=== PATIENT | male | born 1945 | race American Indian/Alaskan Native ===

== ENCOUNTER 2019-11-22 13:19 | Inpatient (IN) | payer MEDICARE ==
[2019-11-22] MEDS ORDERED: SODIUM CHLORIDE 0.9% 1000 ML IV SOLN IV ONE (13:54)
[2019-11-22] MEDS ORDERED: methylPREDNISolone Sod Succinate 125 MG/2 ML INJ IV ONE (13:55)
[2019-11-22] MEDS ORDERED: MAGNESIUM SULFATE 1 GM in SODIUM CHLORIDE 0.9% 50 ML IV ONE (13:55)
[2019-11-22] MEDS ORDERED: ALBUTEROL 2.5 MG/3 ML NEBU IH ONE (13:55)
[2019-11-22] MEDS ORDERED: AZITHROMYCIN 500 MG in SODIUM CHLORIDE 0.9% 250ML 250 ML IV SCH (14:00)
[2019-11-22] MEDS: LORazepam 2 MG/ML VIAL IV PRN (14:12)
--- NOTE | 2019-11-22 14:18 | XRay Report ---
CHEST 1 VIEW 11/22/2019 2:01 PM INDICATION / CLINICAL INFORMATION: respiratory distress. COMPARISON: 2 views of the chest from 03/06/2016. FINDINGS: SUPPORT DEVICES: None. HEART / MEDIASTINUM: No significant abnormality. LUNGS / PLEURA: Right basilar airspace opacities are noted. The lungs are otherwise clear. No signifi cant pleural effusion. No pneumothorax. ADDITIONAL FINDINGS: No significant additional findings. IMPRESSION: Findings concerning for right middle/lower lobe pneumonia. Please correlate with the clinical finding s. Signer Name: Benny Gregory MD Signed: 11/22/2019 2:14 PM Workstation Name: [id number]
[2019-11-22] MEDS: cefTRIAXone/NS 2 GM/100 ML 2 GM/100 ML BAG IV SCH (14:37)
[2019-11-22 14:44] LABS: Basophils # (Auto) 0.1 K/mm3 (0.0-0.1); Basophils % (Auto) 0.8 % (0.0-1.8); Eosinophils # (Auto) 0.1 K/mm3 (0.0-0.4); Eosinophils % (Auto) 0.7 % (0.0-4.3); Hematocrit 42.2 % (35.5-45.6); Hemoglobin 13.8 gm/dl (11.8-15.2); Lymphocytes # (Auto) 0.6 K/mm3 (1.2-5.4); Lymphocytes % (Auto) 6.7 % (13.4-35.0); Mean Corpuscular HGB Conc 33 % (32-34); Mean Corpuscular Volume 83 fl (84-94); Monocytes # (Auto) 0.5 K/mm3 (0.0-0.8); Monocytes % (Auto) 5.2 % (0.0-7.3); Platelet Count 351 K/mm3 (140-440); Red Blood Count 5.07 M/mm3 (3.65-5.03); Red Cell Distribution Width 15.5 % (13.2-15.2)
[2019-11-22 15:05] LABS: Bilirubin,Urine NEG (Negative); Blood,Urine NEG (Negative); Color,Urine Straw (Yellow); Protein,Urine <15 mg/dL mg/dL (Negative); RBC,Urine < 1.0 /HPF (0.0-6.0); Urobilinogen,Urine < 2.0 mg/dL (<2.0); WBC,Urine < 1.0 /HPF (0.0-6.0)
[2019-11-22 15:06] LABS: Alanine Aminotransferase 27 units/L (7-56); Albumin 3.9 g/dL (3.9-5); BUN/Creatinine Ratio 13; Blood Urea Nitrogen 9 mg/dL (9-20); Calcium 9.2 mg/dL (8.4-10.2); Hemolysis Index 7
--- NOTE | 2019-11-22 15:31 | Emergency Department Report ---
ED Shortness of Breath HPI - General Chief Complaint: Dyspnea/Respdistress Stated Complaint: HORACIO Time Seen by Provider: 11/22/19 13:50 Source: EMS Mode of arrival: Stretcher Limitations: No Limitations - History of Present Illness Initial Comments: Patient is a 74-year-old F [place] male with a past medical history of COPD who is presenting with increased cough. Patient states over the last 2 to 3 days his cough is worsened. Feels very short of breath. Tried taking a neb treatment at home without relief. Patient is on 2 L at baseline. Patient has had subjective fevers. He denies nausea vomiting diarrhea. Patient is complaining of some pain in the center to right chest. Pain Scale: 4 Quality: other (Tight) Improves With: nothing Worsens With: exertion Known History Of: COPD Associated Symptoms: fever, cough, sputum production - Related Data Home Oxygen Amount: 2 Liters Home Medications Medication Instructions Recorded Confirmed Last Taken Albuterol INH(or & Nicu Only) 2 puff IH QID PRN 08/28/13 03/06/16 01/22/16 08:00 [ProAir HFA Inhaler] Budesoni/Formotero 160-4.5(Nf) 16 mcg INHALATION BID 08/28/13 03/06/16 01/21/16 21:00 [Symbicort 160-4.5 (Nf)] Doxazosin [Cardura] 8 mg PO DAILY 08/28/13 03/06/16 01/22/16 08:00 Fluticasone Propionate [Flonase] 50 mcg PF BID 08/28/13 03/06/16 01/21/16 21:00 Losartan [Cozaar] 100 mg PO DAILY 08/28/13 03/06/16 01/22/16 08:00 Montelukast [Singulair] 10 mg PO DAILY 08/28/13 03/06/16 01/22/16 08:00 NIFEdipine [NIFEdipine ER] 30 mg PO DAILY 08/28/13 03/06/16 01/22/16 08:00 Spironolactone 25 mg PO DAILY 08/28/13 03/06/16 01/22/16 08:00 Colcrys 0.5 mg PO DAILY 01/22/16 03/06/16 01/22/16 08:00 Esomeprazole Magnesium 40 mg PO DAILY 01/22/16 03/06/16 01/22/16 08:00 Symbicort 80-4.5 (Nf) 80 mcg INHALATION BID 01/22/16 03/06/16 Unknown Previous Rx's Medication Instructions Recorded Last Taken Type Albuterol Sulfate [Proair 90 mcg IH Q4HR PRN #2 aer.pow.ba 11/25/15 01/22/16 10:00 Rx Respiclick] Albuterol Sulfate [Albuterol 0.63% 0.63 mg IH Q4H PRN #25 vial.neb 01/22/16 Unknown Rx NEBS] Azithromycin [Zithromax Z-MALORIE] 1 dose PO DAILY 5 Days tab 03/06/16 Unknown Rx Prednisone [predniSONE 10 mg 10 mg PO .TAPER #1 tab.ds.pk 03/06/16 Unknown Rx (6-Day Pack, 21 Tabs)] Allergies Allergy/AdvReac Type Severity Reaction Status Date / Time lisinopril Allergy Angioedema Verified 11/25/15 20:02 monosodium glutamate Allergy Unknown Verified 11/22/19 14:03 tiotropium bromide Allergy Rash Verified 11/25/15 20:02 [From Spiriva with HandiHaler] ED Review of Systems ROS: Stated complaint: HORACIO Other details as noted in HPI Comment: All other systems reviewed and negative ED Past Medical Hx - Past Medical History Previous Medical History?: Yes Hx Hypertension: Yes Hx Heart Attack/AMI: No Hx Congestive Heart Failure: No Hx Diabetes: No Hx Deep Vein Thrombosis: No Hx Pulmonary Embolism: No Hx GERD: Yes Hx Liver Disease: No Hx Renal Disease: No Hx Sickle Cell Disease: No Hx Arthritis: Yes Hx Headaches / Migraines: No Hx Seizures: No Hx Kidney Stones: No Hx Asthma: No Hx COPD: Yes Hx Tuberculosis: No Hx Dementia: No Hx HIV: No - Surgical History Hx Coronary Stent: No Hx Open Heart Surgery: No Hx Pacemaker: No Hx Internal Defibrillator: No Hx Cholecystectomy: No Hx Appendectomy: No Hx Breast Surgery: No - Social History Smoking Status: Former Smoker Substance Use Type: Alcohol - Medications Home Medications: Home Medications Medication Instructions Recorded Confirmed Last Taken Type Albuterol INH(or & Nicu Only) 2 puff IH QID PRN 08/28/13 03/06/16 01/22/16 08:00 History [ProAir HFA Inhaler] Budesoni/Formotero 160-4.5(Nf) 16 mcg INHALATION BID 08/28/13 03/06/16 01/21/16 21:00 History [Symbicort 160-4.5 (Nf)] Doxazosin [Cardura] 8 mg PO DAILY 08/28/13 03/06/16 01/22/16 08:00 History Fluticasone Propionate [Flonase] 50 mcg PF BID 08/28/13 03/06/16 01/21/16 21:00 History Losartan [Cozaar] 100 mg PO DAILY 08/28/13 03/06/16 01/22/16 08:00 History Montelukast [Singulair] 10 mg PO DAILY 08/28/13 03/06/16 01/22/16 08:00 History NIFEdipine [NIFEdipine ER] 30 mg PO DAILY 08/28/13 03/06/16 01/22/16 08:00 Histo ry Spironolactone 25 mg PO DAILY 08/28/13 03/06/16 01/22/16 08:00 History Albuterol Sulfate [Proair 90 mcg IH Q4HR PRN #2 aer.pow.ba 11/25/15 03/06/16 01/22/16 10:00 Rx Respiclick] Albuterol Sulfate [Albuterol 0.63% 0.63 mg IH Q4H PRN #25 vial.neb 01/22/16 03/06/16 Unknown Rx NEBS] Colcrys 0.5 mg PO DAILY 01/22/16 03/06/16 01/22/16 08:00 History Esomeprazole Magnesium 40 mg PO DAILY 01/22/16 03/06/16 01/22/16 08:00 History Symbicort 80-4.5 (Nf) 80 mcg INHALATION BID 01/22/16 03/06/16 Unknown History Azithromycin [Zithromax Z-MALORIE] 1 dose PO DAILY 5 Days tab 03/06/16 Unknown Rx Prednisone [predniSONE 10 mg 10 mg PO .TAPER #1 tab.ds.pk 03/06/16 Unknown Rx (6-Day Pack, 21 Tabs)] ED Physical Exam - General Limitations: No Limitations General appearance: alert, in distress (Patient in respiratory distress with tripod posturing) - Head Head exam: Present: atraumatic, normocephalic - Eye Eye exam: Present: normal appearance, PERRL, EOMI - ENT ENT exam: Present: mucous membranes moist - Neck Neck exam: Present: normal inspection - Respiratory Respiratory exam: Present: respiratory distress, wheezes, accessory muscle use. Absent: normal lung sounds bilaterally - Cardiovascular Cardiovascular Exam: Present: normal rhythm, tachycardia. Absent: systolic murmur, diastolic murmur, rubs, gallop - GI/Abdominal GI/Abdominal exam: Present: soft, normal bowel sounds. Absent: distended, tend erness, guarding, rebound - Rectal Rectal exam: Present: deferred - Extremities Exam Extremities exam: Present: normal inspection - Back Exam Back exam: Present: normal inspection - Neurological Exam Neurological exam: Present: alert, oriented X3 - Psychiatric Psychiatric exam: Present: normal affect, normal mood - Skin Skin exam: Present: warm, dry, intact, normal color. Absent: rash ED Course Vital Signs 11/22/19 11/22/19 11/22/19 13:26 14:20 14:28 Temperature 98.8 F Pulse Rate 141 H 110 H Pulse Rate [ 121 H Bilateral Upper Lobe] Respiratory 32 H 35 H Rate Respiratory 35 H Rate [Bilateral Upper Lobe] Blood Pressure 119/71 [Right] O2 Sat by Pulse 95 96 Oximetry 11/22/19 15:10 Temperature Pulse Rate Pulse Rate [ Bilateral Upper Lobe] Respiratory 18 Rate Respiratory Rate [Bilateral Upper Lobe] Blood Pressure [Right] O2 Sat by Pulse 90 Oximetry - Reevaluation(s) Reevaluation #1: 11/22/19 15:29 On presentation the patient met sepsis criteria and blood cultures were drawn as well as lactic acid. Patient was given Rocephin and azithromycin for presumed pneumonia. ED Medical Decision Making - Lab Data Result diagrams: 11/22/19 13:54 11/22/19 13:54 Lab Results 11/22/19 11/22/19 11/22/19 Range/Units 13:54 13:54 13:54 WBC 8.8 (4.5-11.0) K/mm3 RBC 5.07 H (3.65-5.03) M/mm3 Hgb 13.8 (11.8-15.2) gm/dl Hct 42.2 (35.5-45.6) % MCV 83 L (84-94) fl MCH 27 L (28-32) pg MCHC 33 (32-34) % RDW 15.5 H (13.2-15.2) % Plt Count 351 (140-440) K/mm3 Lymph % (Auto) 6.7 L (13.4-35.0) % [place] % (Auto) 5.2 (0.0-7.3) % Eos % (Auto) 0.7 (0.0-4.3) % Baso % (Auto) 0.8 (0.0-1.8) % Lymph # 0.6 L (1.2-5.4) K/mm3 [place] # 0.5 (0.0-0.8) K/mm3 Eos # 0.1 (0.0-0.4) K/mm3 Baso # 0.1 (0.0-0.1) K/mm3 Seg Neutrophils % 86.6 H (40.0-70.0) % Seg Neutrophils # 7.6 (1.8-7.7) K/mm3 D-Dimer 804.84 H (0-234) ng/mlDDU Sodium 139 (137-145) mmol/L Potassium 3.9 (3.6-5.0) mmol/L Chloride 100.9 (98-107) mmol/L Carbon Dioxide 24 (22-30) mmol/L Anion Gap 18 mmol/L BUN 9 (9-20) mg/dL Creatinine 0.7 L (0.8-1.5) mg/dL Estimated GFR > 60 ml/min BUN/Creatinine Ratio 13 % Glucose 115 H (75-100) mg/dL Lactic Acid (0.7-2.0) mmol/L Calcium 9.2 (8.4-10.2) mg/dL Total Bilirubin 0.50 (0.1-1.2) mg/dL AST 28 (5-40) units/L ALT 27 (7-56) units/L Alkaline Phosphatase 86 (35-129) units/L Troponin T < 0.010 (0.00-0.029) ng/mL Total Protein 7.2 (6.3-8.2) g/dL Albumin 3.9 (3.9-5) g/dL Albumin/Globulin Ratio 1.2 % Urine Color (Yellow) Urine Turbidity (Clear) Urine pH (5.0-7.0) Ur Specific [place] (1.003-1.030) Urine Protein (Negative) mg/dL Urine Glucose (UA) (Negative) mg/dL Urine Ketones (Negative) mg/dL Urine Blood (Negative) Urine Nitrite (Negative) Urine Bilirubin (Negative) Urine Urobilinogen (<2.0) mg/dL Ur Leukocyte Esterase (Negative) Urine WBC (Auto) (0.0-6.0) /HPF Urine RBC (Auto) (0.0-6.0) /HPF U Epithel Cells (Auto) (0-13.0) /HPF 11/22/19 11/22/19 Range/Units 14:27 14:50 WBC (4.5-11.0) K/mm3 RBC (3.65-5.03) M/mm3 Hgb (11.8-15.2) gm/dl Hct (35.5-45.6) % MCV (84-94) fl MCH (28-32) pg MCHC (32-34) % RDW (13.2-15.2) % Plt Count (140-440) K/mm3 Lymph % (Auto) (13.4-35.0) % [place] % (Auto) (0.0-7.3) % Eos % (Auto) (0.0-4.3) % Baso % (Auto) (0.0-1.8) % Lymph # (1.2-5.4) K/mm3 [place] # (0.0-0.8) K/mm3 Eos # (0.0-0.4) K/mm3 Baso # (0.0-0.1) K/mm3 Seg Neutrophils % (40.0-70.0) % Seg Neutrophils # (1.8-7.7) K/mm3 D-Dimer (0-234) ng/mlDDU Sodium (137-145) mmol/L Potassium (3.6-5.0) mmol/L Chloride (98-107) mmol/L Carbon Dioxide (22-30) mmol/L Anion Gap mmol/L BUN (9-20) mg/dL Creatinine (0.8-1.5) mg/dL Estimated GFR ml/min BUN/Creatinine Ratio % Glucose (75-100) mg/dL Lactic Acid 1.30 (0.7-2.0) mmol/L Calcium (8.4-10.2) mg/dL Total Bilirubin (0.1-1.2) mg/dL AST (5-40) units/L ALT (7-56) units/L Alkaline Phosphatase (35-129) units/L Troponin T (0.00-0.029) ng/mL Total Protein (6.3-8.2) g/dL Albumin (3.9-5) g/dL Albumin/Globulin Ratio % Urine Color Straw (Yellow) Urine Turbidity Clear (Clear) Urine pH 6.0 (5.0-7.0) Ur Specific [place] 1.009 (1.003-1.030) Urine Protein <15 mg/dl (Negative) mg/dL Urine Glucose (UA) Neg (Negative) mg/dL Urine Ketones Neg (Negative) mg/dL Urine Blood Neg (Negative) Urine Nitrite Neg (Negative) Urine Bilirubin Neg (Negative) Urine Urobilinogen < 2.0 (<2.0) mg/dL Ur Leukocyte Esterase Neg (Negative) Urine WBC (Auto) < 1.0 (0.0-6.0) /HPF Urine RBC (Auto) < 1.0 (0.0-6.0) /HPF U Epithel Cells (Auto) < 1.0 (0-13.0) /HPF D-dimer was ordered as part of the COVID-19 screening. I was not suspicious of a pulmonary embolus. - Radiology Data [facility] [address] [place] [address] XRay Report Signed Patient: RADHA JOHNSON MR#: [id number] : 1945 Acct:[id number] Age/Sex: 74 / M ADM Date: 11/22/19 Loc: ED Attending Dr: Ordering Physician: MEGA RICHARDSON MD Date of Service: 11/22/19 Procedure(s): XR chest 1V ap Accession Number(s): [id number] cc: MEGA RICHARDSON MD Fluoro Time In Minutes: CHEST 1 VIEW 11/22/2019 2:01 PM INDICATION / CLINICAL INFORMATION: respiratory distress. COMPARISON: 2 views of the chest from 03/06/2016. FINDINGS: SUPPORT DEVICES: None. HEART / MEDIASTINUM: No significant abnormality. LUNGS / PLEURA: Right basilar airspace opacities are noted. The lungs are otherwise clear. No significant pleural effusion. No pneumothorax. ADDITIONAL FINDINGS: No significant additional findings. IMPRESSION: Findings concerning for right middle/lower lobe pneumonia. Please correlate with the clinical findings. Signer Name: Benny Gregory MD Signed: 11/22/2019 2:14 PM Workstation Name: [id number] Transcribed By: MICKI Dictated By: Benny Gregory MD Electronically Authenticated By: Benny Gregory MD Signed Date/Time: 11/22/19 1414 - Medical Decision Making Patient is a 74-year-old F [place] male with a past medical history of significant for COPD. Patient found to have right middle and lower lobe infil trates consistent with pneumonia. Patient was placed on the PGY list and COVID- 19 labs have been ordered. Patient will be admitted to the hospital service patient is received a hour-long neb treatment on BiPAP and feeling some improvement and is no longer having tripod posturing at the time of admission. Critical Care Time: Yes (30) Critical care attestation.: If time is entered above; I have spent that time in minutes in the direct care of this critically ill patient, excluding procedure time. ED Disposition Clinical Impression: COPD exacerbation, Suspected COVID-19 virus infection Pneumonia Qualifiers: Pneumonia type: due to unspecified organism Laterality: right Lung location: lower lobe of lung Qualified Code(s): J18.9 - Pneumonia, unspecified organism Disposition: OP ADMIT IP TO THIS HOSP Is pt being admited?: Yes Does the pt Need Aspirin: No Condition: Stable Referrals: PRIMARY CARE, [Primary Care Provider] - 3-5 Days Time of Disposition: 15:32
--- NOTE | 2019-11-22 15:34 | History and Physical Report ---
History of Present Illness Chief complaint: I can hardly breathe History of present illness: 74 YO Male with COPD, OA, GERD, Chronic Respiratory Failure on 2L Home Oxygen via [place], HTN, presents to ED for evaluation. He has experienced shortness of breath over the past 2 weeks with worsening symptoms over the past 2 to 3 days. Patient acknowledges shortness of breath, dry cough, generalized weakness, subjective fever, malaise. Patient acknowledges increased bronchodilator and nebulizer therapy use without relief. EMS was notified and upon arrival the patient was found to be in distress and subsequently transported to [facility] for further evaluation and care. Patient seen and evaluated in the emergency department. Lab and imaging studies reviewed. Patient found to be in respiratory distress. Patient tripoding. Patient leaning forward and using accessory muscles to breathe. Patient is unable to speak in complete sentences. Patient underwent chest x-ray which revealed a right middle lobe and right lower lobe pneumonia. Patient found to have a pulse oximetry of 88% on room air but is consistent with acute hypoxemic respiratory failure. Due to the patient's constellation of symptoms the patient is suspected to have coronavirus infection. Patient initiated on COVID-19 protocol. Patient admitted to medical floor due to increased risk of pulmonary decompensation. Infectious disease service consulted in ED. Pulmonology service consulted in ED. Patient denies shaking chills or chills, chest pain, nausea, vomiting, diarrhea, hemoptysis, unilateral leg swelling, calf pain, prolonged travel/immobility, unintentional weight loss, night sweats, recent ill contacts, or known exposure to COVID-19. Advanced care planning conducted in ED. Past History Past Medical History: arthritis, COPD, GERD, hypertension, other (See HPI) Past Surgical History: No surgical history, Other (Reviewed) Social history: . denies: prescription drug abuse Family history: hypertension Medications and Allergies Allergies Allergy/AdvReac Type Severity Reaction Status Date / Time lisinopril Allergy Angioedema Verified 11/25/15 20:02 monosodium glutamate Allergy Unknown Verified 11/22/19 14:03 tiotropium bromide Allergy Rash Verified 11/25/15 20:02 [From Spiriva with HandiHaler] Home Medications Medication Instructions Recorded Confirmed Last Taken Type Albuterol INH(or & Nicu Only) 2 puff IH QID PRN 08/28/13 03/06/16 01/22/16 08:00 History [ProAir HFA Inhaler] Budesoni/Formotero 160-4.5(Nf) 16 mcg INHALATION BID 08/28/13 03/06/16 01/21/16 21:00 History [Symbicort 160-4.5 (Nf)] Doxazosin [Cardura] 8 mg PO DAILY 08/28/13 03/06/16 01/22/16 08:00 History Fluticasone Propionate [Flonase] 50 mcg PF BID 08/28/13 03/06/16 01/21/16 21:00 History Losartan [Cozaar] 100 mg PO DAILY 08/28/13 03/06/16 01/22/16 08:00 History Montelukast [Singulair] 10 mg PO DAILY 08/28/13 03/06/16 01/22/16 08:00 History NIFEdipine [NIFEdipine ER] 30 mg PO DAILY 08/28/13 03/06/16 01/22/16 08:00 History Spironolactone 25 mg PO DAILY 08/28/13 03/06/16 01/22/16 08:00 History Albuterol Sulfate [Proair 90 mcg IH Q4HR PRN #2 aer.pow.ba 11/25/15 03/06/16 01/22/16 10:00 Rx Respiclick] Albuterol Sulfate [Albuterol 0.63% 0.63 mg IH Q4H PRN #25 vial.neb 01/22/16 03/06/16 Unknown Rx NEBS] Colcrys 0.5 mg PO DAILY 01/22/16 03/06/16 01/22/16 08:00 History Esomeprazole Magnesium 40 mg PO DAILY 01/22/16 03/06/16 01/22/16 08:00 History Symbicort 80-4.5 (Nf) 80 mcg INHALATION BID 01/22/16 03/06/16 Unknown History Azithromycin [Zithromax Z-MALORIE] 1 dose PO DAILY 5 Days tab 03/06/16 Unknown Rx Prednisone [predniSONE 10 mg 10 mg PO .TAPER #1 tab.ds.pk 03/06/16 Unknown Rx (6-Day Pack, 21 Tabs)] Active Meds: Active Medications Ceftriaxone Sodium (Rocephin/Ns 2 Gm/100 Ml) 2 gm in 100 mls @ 200 mls/hr IV Q24H LANDY; Protocol Last Infusion: 11/22/19 15:07 Dose: Infused Documented by: Azithromycin 500 mg/ Sodium (Chloride) 250 mls @ 250 mls/hr IV Q24HR [facility]; Protocol Last Admin: 11/22/19 15:15 Dose: 250 mls/hr Documented by: Lorazepam (Ativan) 1 mg IV Q4H PRN PRN Reason: Anxiety Last Admin: 11/22/19 14:12 Dose: 1 mg Documented by: Review of Systems Constitutional: weight loss, weight gain, chills, fatigue, malaise, lethargy Ears, nose, mouth and throat: no ear pain, no ear discharge, no tinnitis, no decreased hearing Cardiovascular: no chest pain, no orthopnea, no palpitations Respiratory: cough, shortness of breath Gastrointestinal: no nausea, no vomiting, no diarrhea, no constipation Genitourinary Male: no hematuria, no flank pain, no discharge, no urinary frequency, no urinary hesitancy Rectal: no pain, no incontinence, no bleeding Musculoskeletal: no neck stiffness, no neck pain, no shooting arm pain, no arm numbness/tingling, no low back pain Integumentary: no rash, no redness, no sores Neurological: no head injury, no weakness, no parathesias, no tingling, no syncope Psychiatric: no anxiety, no memory loss, no change in sleep habits, no insomnia, no hypersomnia, no change in libido, no suicidal ideation Endocrine: no cold intolerance, no heat intolerance, no polydipsia, no polyuria, no nocturia, no excessive sweating Hematologic/Lymphatic: no easy bruising, no easy bleeding, no lymphadenopathy Allergic/Immunologic: no urticaria, no allergic rhinitis, no wheezing, no persistent infections, no anaphylaxis, no angioedema Exam - Constitutional Vitals: Temp Pulse Resp BP Pulse Ox 98.8 F 121 H 18 119/71 90 11/22/19 13:26 11/22/19 14:28 11/22/19 15:10 11/22/19 13:26 11/22/19 15:10 General appearance: Present: mild distress, cachectic - EENT Eyes: Present: PERRL ENT: hearing intact, clear oral mucosa - Neck Neck: Present: supple, normal ROM - Respiratory Respiratory effort: normal, labored, pursed lips, accessory muscle use, stridor Respiratory: bilateral: diminished - Cardiovascular Heart Sounds: Present: S1 & S2. Absent: rub, click - Extremities Extremities: pulses symmetrical, No edema Peripheral Pulses: within normal limits - Abdominal General gastrointestinal: Present: soft, non-tender, non-distended, normal bowel sounds Male genitourinary: Present: normal - Integumentary Integumentary: Present: clear, warm, dry - Musculoskeletal Musculoskeletal: gait normal, strength equal bilaterally - Psychiatric Psychiatric: appropriate mood/affect, intact judgment & insight - Neurologic Neurologic: CNII-XII intact, moves all extremities HEART Score - HEART Score Troponin: Troponin T < 0.010 ng/mL (0.00-0.029) 11/22/19 13:54 Results - Labs CBC & Chem 7: 11/22/19 13:54 11/22/19 14:27 Labs: Abnormal lab results 11/22/19 11/22/19 11/22/19 Range/Units 13:54 13:54 13:54 RBC 5.07 H (3.65-5.03) M/mm3 MCV 83 L (84-94) fl MCH 27 L (28-32) pg RDW 15.5 H (13.2-15.2) % Lymph % (Auto) 6.7 L (13.4-35.0) % Lymph # 0.6 L (1.2-5.4) K/mm3 Seg Neutrophils % 86.6 H (40.0-70.0) % D-Dimer 804.84 H (0-234) ng/mlDDU Creatinine 0.7 L (0.8-1.5) mg/dL Glucose 115 H (75-100) mg/dL Assessment and Plan - Patient Problems (1) Acute hypoxemic respiratory failure Current Visit: Yes Status: Acute Plan to address problem: Chest x-ray, supplemental oxygen, nebulizer therapy, supportive care, pulmonary team consulted in ED. (2) Pneumonia Current Visit: Yes Status: Acute Qualifiers: Pneumonia type: due to unspecified organism Laterality: right Lung location: lower lobe of lung Qualified Code(s): J18.9 - Pneumonia, unspecified organism Plan to address problem: Pneumonia protocol: CBC, CMP, chest x-ray, IV antibiotic therapy, supplemental oxygen, pulse oximetry (3) Suspected COVID-19 virus infection Current Visit: Yes Status: Acute Plan to address problem: COVID-19 protocol: Procalcitonin level d-dimer, ferritin level, LDH level, coronavirus PCR, prone positioning while in bed, infectious disease service consulted. (4) Hypertension Current Visit: No Status: Chronic Qualifiers: Hypertension type: essential hypertension Qualified Code(s): I10 - Essential (primary) hypertension Plan to address problem: Monitor blood pressure every shift, continue medical management. (5) Gastroesophageal reflux disease Current Visit: Yes Status: Acute Qualifiers: Esophagitis presence: without esophagitis Qualified Code(s): K21.9 - Gastr o-esophageal reflux disease without esophagitis Plan to address problem: PPI therapy, supportive care (6) DVT prophylaxis Current Visit: Yes Status: Acute Plan to address problem: SCD to bilateral lower extremities while in bed, patient is ambulatory
[2019-11-22 15:35] LABS: C-Reactive Protein 1.5 mg/dL (0.00-1.30)
[2019-11-22] MEDS ORDERED: ONDANSETRON 4 MG/2 ML INJ IV PRN (15:35)
[2019-11-22] MEDS ORDERED: ACETAMINOPHEN 325 MG TAB PO PRN (15:35)
[2019-11-22] MEDS: BUDESONIDE 0.5 MG/2 ML NEBU IH SCH (20:48)
[2019-11-22] MEDS: ARFORMOTEROL 15 MCG/2 ML NEBU IH SCH (20:49)
[2019-11-22] MEDS ORDERED: SYMBICORT 80 MCG INHALATION SCH (22:00)
[2019-11-23] MEDS: ALBUTEROL 8.5 GM INHALATION IH PRN ×3 (05:52→21:33)
[2019-11-23] MEDS: LORazepam 2 MG/ML VIAL IV PRN (06:33)
[2019-11-23] MEDS: SPIRONOLACTONE 25 MG TAB PO SCH (09:18)
[2019-11-23] MEDS: DOXAZOSIN 4 MG TAB PO SCH (09:18)
[2019-11-23] MEDS: ARFORMOTEROL 15 MCG/2 ML NEBU IH SCH ×2 (09:18→21:31)
[2019-11-23] MEDS: BUDESONIDE 0.5 MG/2 ML NEBU IH SCH ×2 (09:18→21:37)
[2019-11-23] MEDS: COLCHICINE 0.6 MG CAP PO SCH (09:19)
[2019-11-23] MEDS: NIFEdipine XL 30 MG TAB PO SCH (09:19)
[2019-11-23] MEDS: LOSARTAN 50 MG TAB PO SCH (09:19)
[2019-11-23] MEDS: AZITHROMYCIN 250 MG TAB PO SCH (09:20)
[2019-11-23] MEDS: MONTELUKAST 10 MG TAB PO SCH (09:20)
[2019-11-23] MEDS: PANTOPRAZOLE 40 MG TAB PO SCH (09:21)
[2019-11-23] MEDS ORDERED: COLCHICINE PO SCH (10:00)
[2019-11-23] MEDS: cefTRIAXone/NS 2 GM/100 ML 2 GM/100 ML BAG IV SCH (13:26)
--- NOTE | 2019-11-23 19:21 | Progress Note ---
Assessment and Plan - Patient Problems (1) Acute hypoxemic respiratory failure Current Visit: Yes Status: Acute Plan to address problem: Chest x-ray, supplemental oxygen, nebulizer therapy, supportive care, pulmonary team consulted in ED. (2) Pneumonia Current Visit: Yes Status: Acute Qualifiers: Pneumonia type: due to unspecified organism Laterality: right Lung location: lower lobe of lung Qualified Code(s): J18.9 - Pneumonia, unspecified organism Plan to address problem: Pneumonia protocol: CBC, CMP, chest x-ray, IV antibiotic therapy, supplemental oxygen, pulse oximetry (3) Suspected COVID-19 virus infection Current Visit: Yes Status: Acute Plan to address problem: COVID-19 PCR is negative (4) Hypertension Current Visit: No Status: Chronic Qualifiers: Hypertension type: essential hypertension Qualified Code(s): I10 - Essential (primary) hypertension Plan to address problem: Monitor blood pressure every shift, continue medical management. (5) Gastroesophageal reflux disease Current Visit: Yes Status: Acute Qualifiers: Esophagitis presence: without esophagitis Qualified Code(s): K21.9 - Gastro-esophageal reflux disease without esophagitis Plan to address problem: PPI therapy, supportive care (6) DVT prophylaxis Current Visit: Yes Status: Acute Plan to address problem: SCD to bilateral lower extremities while in bed, patient is ambulatory History Interval history: 74 YO Male HD#2 with Pneumonia, Acute Hypoxemic Respiratory Failure, HTN, GERD. Coronavirus PCR is nagative. Patient states that it is still "hard to breathe. Patient states that he has dyspnea on exertion, dyspnea at rest. Patient states that "this is been going on for a while". No reported nursing events. Patient denies fever, chills, chest pain. Hospitalist Physical - Constitutional Vitals: Temp Pulse Resp BP Pulse Ox 98.6 F 95 H 19 101/52 99 11/23/19 16:44 11/23/19 16:44 11/23/19 16:44 11/23/19 16:44 11/23/19 16:44 General appearance: Present: mild distress, cachectic - EENT Eyes: Present: PERRL, EOM intact ENT: hearing intact - Neck Neck: Present: supple - Respiratory Respiratory effort: labored Respiratory: bilateral: diminished - Cardiovascular Rhythm: regular Heart Sounds: Present: S1 & S2 - Extremities Extremities: no ischemia Peripheral Pulses: within normal limits - Abdominal General gastrointestinal: soft, non-tender, non-distended - Integumentary Integumentary: Present: clear, warm, dry - Psychiatric Psychiatric: appropriate mood/affect, cooperative - Neurologic Neurologic: CNII-XII intact HEART Score - HEART Score Troponin: Troponin T < 0.010 ng/mL (0.00-0.029) 11/22/19 13:54 Results - Labs CBC & Chem 7: 11/22/19 13:54 11/22/19 14:27 Labs: Laboratory Last Values WBC 8.8 K/mm3 (4.5-11.0) 11/22/19 13:54 RBC 5.07 M/mm3 (3.65-5.03) H 11/22/19 13:54 Hgb 13.8 gm/dl (11.8-15.2) 11/22/19 13:54 Hct 42.2 % (35.5-45.6) 11/22/19 13:54 MCV 83 fl (84-94) L 11/22/19 13:54 MCH 27 pg (28-32) L 11/22/19 13:54 MCHC 33 % (32-34) 11/22/19 13:54 RDW 15.5 % (13.2-15.2) H 11/22/19 13:54 Plt Count 351 K/mm3 (140-440) 11/22/19 13:54 Lymph % (Auto) 6.7 % (13.4-35.0) L 11/22/19 13:54 [place] % (Auto) 5.2 % (0.0-7.3) 11/22/19 13:54 Eos % (Auto) 0.7 % (0.0-4.3) 11/22/19 13:54 Baso % (Auto) 0.8 % (0.0-1.8) 11/22/19 13:54 Lymph # 0.6 K/mm3 (1.2-5.4) L 11/22/19 13:54 [place] # 0.5 K/mm3 (0.0-0.8) 11/22/19 13:54 Eos # 0.1 K/mm3 (0.0-0.4) 11/22/19 13:54 Baso # 0.1 K/mm3 (0.0-0.1) 11/22/19 13:54 Seg Neutrophils % 86.6 % (40.0-70.0) H 11/22/19 13:54 Seg Neutrophils # 7.6 K/mm3 (1.8-7.7) 11/22/19 13:54 D-Dimer 804.84 ng/mlDDU (0-234) H 11/22/19 13:54 Sodium 139 mmol/L (137-145) 11/22/19 13:54 Potassium 3.9 mmol/L (3.6-5.0) 11/22/19 13:54 Chloride 100.9 mmol/L (98-107) 11/22/19 13:54 Carbon Dioxide 24 mmol/L (22-30) 11/22/19 13:54 Anion Gap 18 mmol/L 11/22/19 13:54 BUN 9 mg/dL (9-20) 11/22/19 13:54 Creatinine 0.7 mg/dL (0.8-1.5) L 11/22/19 13:54 Estimated GFR > 60 ml/min 11/22/19 13:54 BUN/Creatinine Ratio 13 % 11/22/19 13:54 Glucose 111 mg/dL (75-100) H 11/22/19 14:27 Lactic Acid 1.10 mmol/L (0.7-2.0) 11/22/19 16:59 Calcium 9.2 mg/dL (8.4-10.2) 11/22/19 13:54 Ferritin 124.1 ng/mL (13.0-400.0) 11/22/19 14:27 Total Bilirubin 0.50 mg/dL (0.1-1.2) 11/22/19 13:54 AST 28 units/L (5-40) 11/22/19 13:54 ALT 27 units/L (7-56) 11/22/19 13:54 Alkaline Phosphatase 86 units/L (35-129) 11/22/19 13:54 Lactate Dehydrogenase 353 units/L (91-180) H 11/22/19 14:27 Troponin T < 0.010 ng/mL (0.00-0.029) 11/22/19 13:54 C-Reactive Protein 1.50 mg/dL (0.00-1.30) H 11/22/19 14:27 Total Protein 7.2 g/dL (6.3-8.2) 11/22/19 13:54 Albumin 3.9 g/dL (3.9-5) 11/22/19 13:54 Albumin/Globulin Ratio 1.2 % 11/22/19 13:54 Urine Color Straw (Yellow) 11/22/19 14:50 Urine Turbidity Clear (Clear) 11/22/19 14:50 Urine pH 6.0 (5.0-7.0) 11/22/19 14:50 Ur Specific [place] 1.009 (1.003-1.030) 11/22/19 14:50 Urine Protein <15 mg/dl mg/dL (Negative) 11/22/19 14:50 Urine Glucose (UA) Neg mg/dL (Negative) 11/22/19 14:50 Urine Ketones Neg mg/dL (Negative) 11/22/19 14:50 Urine Blood Neg (Negative) 11/22/19 14:50 Urine Nitrite Neg (Negative) 11/22/19 14:50 Urine Bilirubin Neg (Negative) 11/22/19 14:50 Urine Urobilinogen < 2.0 mg/dL (<2.0) 11/22/19 14:50 Ur Leukocyte Esterase Neg (Negative) 11/22/19 14:50 Urine WBC (Auto) < 1.0 /HPF (0.0-6.0) 11/22/19 14:50 Urine RBC (Auto) < 1.0 /HPF (0.0-6.0) 11/22/19 14:50 U Epithel Cells (Auto) < 1.0 /HPF (0-13.0) 11/22/19 14:50 Coronavirus (PCR) Negative (Negative) 11/22/19 14:50 Microbiology: Microbiology 11/22/19 14:27 Peripheral/Venous Blood Culture - Preliminary NO GROWTH AFTER 24 HOURS 11/22/19 14:27 Peripheral/Venous Blood Culture - Preliminary NO GROWTH AFTER 24 HOURS Titus/IV: Voiding Method Toilet IV Catheter Type [Left Wrist] INT / Saline Lock IV Catheter Type [Right INT / Saline Lock Forearm] Active Medications - Current Medications Current Medications: Generic Name Dose Route Start Last Admin Trade Name Freq PRN Reason Stop Dose Admin Acetaminophen 650 mg 11/22/19 15:35 Tylenol PO Q4H PRN Pain MILD(1-3)/Fever >100.5/[place] Albuterol 2 puff 11/22/19 19:58 11/23/19 18:01 Proair IH 2 puff Q6HRT PRN Administration Shortness Of Breath Arformoterol Tartrate 15 mcg 11/22/19 20:00 11/23/19 09:18 Brovana Nebu IH 15 mcg Q12HRT LANDY Administration Azithromycin 500 mg 11/23/19 10:00 11/23/19 09:20 Zithromax PO 500 mg QDAY LANDY Administration Budesonide 0.5 mg 11/22/19 20:00 11/23/19 09:18 Pulmicort IH 0.5 mg Q12HRT LANDY Administration Colchicine 0.6 mg 11/23/19 10:00 11/23/19 09:19 Colchicine PO 0.6 mg QDAY LANDY Administration Doxazosin Mesylate 8 mg 11/23/19 10:00 11/23/19 09:18 Cardura PO 8 mg DAILY LANDY Administration Ceftriaxone Sodium 2 gm in 100 mls @ 200 mls/hr 11/22/19 14:00 11/23/19 13:26 Rocephin/Ns 2 Gm/100 Ml IV 100 mls/hr Q24H LANDY Administration Protocol Lorazepam 1 mg 11/22/19 13:54 11/23/19 06:33 Ativan IV 1 mg Q4H PRN Administration Anxiety Losartan Potassium 100 mg 11/23/19 10:00 11/23/19 09:19 Cozaar PO 100 mg DAILY LANDY Administration Montelukast Sodium 10 mg 11/23/19 10:00 11/23/19 09:20 Singulair PO 10 mg DAILY LANDY Administration Nifedipine 30 mg 11/23/19 10:00 11/23/19 09:19 Procardia Xl PO 30 mg DAILY LANDY Administration Ondansetron HCl 4 mg 11/22/19 15:35 Zofran IV Q8H PRN Nausea And Vomiting Pantoprazole Sodium 40 mg 11/23/19 10:00 11/23/19 09:21 Protonix PO 40 mg DAILY LANDY Administration Sodium Chloride 10 ml 11/22/19 22:00 11/23/19 09:20 Sodium Chloride Flush Syringe 10 Ml IV 10 ml BID LANDY Administration Sodium Chloride 10 ml 11/22/19 15:35 Sodium Chloride Flush Syringe 10 Ml IV PRN PRN LINE FLUSH Spironolactone 25 mg 11/23/19 10:00 11/23/19 09:18 Aldactone PO 25 mg DAILY LANDY Administration
[2019-11-24] MEDS ORDERED: IPRATROPIUM/ALBUTEROL SULFATE 3 ML AMPUL.NEB IH SCH (08:00)
[2019-11-24] MEDS: BUDESONIDE 0.5 MG/2 ML NEBU IH SCH ×2 (08:28→20:14)
[2019-11-24] MEDS: ARFORMOTEROL 15 MCG/2 ML NEBU IH SCH ×3 (08:28→20:16)
[2019-11-24] MEDS ORDERED: ALBUTEROL 2.5 MG/3 ML NEBU IH PRN (08:41)
[2019-11-24] MEDS: MONTELUKAST 10 MG TAB PO SCH (09:54)
[2019-11-24] MEDS: NIFEdipine XL 30 MG TAB PO SCH (09:54)
[2019-11-24] MEDS: DOXAZOSIN 4 MG TAB PO SCH (09:54)
[2019-11-24] MEDS: SPIRONOLACTONE 25 MG TAB PO SCH (09:54)
[2019-11-24] MEDS: PANTOPRAZOLE 40 MG TAB PO SCH (09:54)
[2019-11-24] MEDS: AZITHROMYCIN 250 MG TAB PO SCH (09:55)
[2019-11-24] MEDS: COLCHICINE 0.6 MG CAP PO SCH (09:55)
[2019-11-24] MEDS: LOSARTAN 50 MG TAB PO SCH (10:05)
[2019-11-24] MEDS ORDERED: methylPREDNISolone Sod Succinate 40 MG/1 ML INJ IV ONE (13:00)
[2019-11-24] MEDS: cefTRIAXone/NS 2 GM/100 ML 2 GM/100 ML BAG IV SCH (13:01)
[2019-11-24] MEDS: IPRATROPIUM/ALBUTEROL SULFATE 3 ML AMPUL.NEB IH SCH ×2 (13:47→20:14)
--- NOTE | 2019-11-24 14:04 | Progress Note ---
Assessment and Plan - Patient Problems (1) Acute hypoxemic respiratory failure Current Visit: Yes Status: Acute Plan to address problem: Chest x-ray, supplemental oxygen, nebulizer therapy, supportive care, pulmonary team consulted in ED. (2) Pneumonia Current Visit: Yes Status: Acute Qualifiers: Pneumonia type: due to unspecified organism Laterality: right Lung location: lower lobe of lung Qualified Code(s): J18.9 - Pneumonia, unspecified organism Plan to address problem: Pneumonia protocol: CBC, CMP, chest x-ray, IV antibiotic therapy, supplemental oxygen, pulse oximetry (3) Suspected COVID-19 virus infection Current Visit: Yes Status: Acute Plan to address problem: Patient coronavirus PCR is negative. Will discontinue isolation precautions. (4) Hypertension Current Visit: No Status: Chronic Qualifiers: Hypertension type: essential hypertension Qualified Code(s): I10 - Essential (primary) hypertension Plan to address problem: Monitor blood pressure every shift, continue medical management. (5) Gastroesophageal reflux disease Current Visit: Yes Status: Acute Qualifiers: Esophagitis presence: without esophagitis Qualified Code(s): K21.9 - Gastro-esophageal reflux disease without esophagitis Plan to address problem: PPI therapy, supportive care (6) DVT prophylaxis Current Visit: Yes Status: Acute Plan to address problem: SCD to bilateral lower extremities while in bed, patient is ambulatory History Interval history: 74 YO Male HD#3 with Pneumonia, Acute Hypoxemic Respiratory Failure, HTN, GERD. Coronavirus PCR is nagative. Patient again states that it is still "hard to br eathe". Patient states that he has dyspnea on exertion, dyspnea at rest. Patient states that "this is been going on for a while". No reported nursing events. Patient denies fever, chills, chest pain, hemoptysis, unilateral leg swelling, calf pain, recent ill contacts. Hospitalist Physical - Constitutional Vitals: Temp Pulse Resp BP Pulse Ox 98.2 F 106 H 18 113/59 98 11/24/19 12:33 11/24/19 13:47 11/24/19 13:47 11/24/19 12:33 11/24/19 13:50 General appearance: Present: mild distress, cachectic - EENT Eyes: Present: PERRL, EOM intact - Neck Neck: Present: supple - Respiratory Respiratory effort: labored Respiratory: bilateral: diminished - Cardiovascular Rhythm: regular Heart Sounds: Present: S1 & S2 - Extremities Extremities: no ischemia Peripheral Pulses: within normal limits - Abdominal General gastrointestinal: soft, non-tender, non-distended - Integumentary Integumentary: Present: clear, warm, dry - Psychiatric Psychiatric: appropriate mood/affect, cooperative - Neurologic Neurologic: CNII-XII intact HEART Score - HEART Score Troponin: Troponin T < 0.010 ng/mL (0.00-0.029) 11/22/19 13:54 Results - Labs CBC & Chem 7: 11/22/19 13:54 11/22/19 14:27 Labs: Laboratory Last Values WBC 8.8 K/mm3 (4.5-11.0) 11/22/19 13:54 RBC 5.07 M/mm3 (3.65-5.03) H 11/22/19 13:54 Hgb 13.8 gm/dl (11.8-15.2) 11/22/19 13:54 Hct 42.2 % (35.5-45.6) 11/22/19 13:54 MCV 83 fl (84-94) L 11/22/19 13:54 MCH 27 pg (28-32) L 11/22/19 13:54 MCHC 33 % (32-34) 11/22/19 13:54 RDW 15.5 % (13.2-15.2) H 11/22/19 13:54 Plt Count 351 K/mm3 (140-440) 11/22/19 13:54 Lymph % (Auto) 6.7 % (13.4-35.0) L 11/22/19 13:54 [place] % (Auto) 5.2 % (0.0-7.3) 11/22/19 13:54 Eos % (Auto) 0.7 % (0.0-4.3) 11/22/19 13:54 Baso % (Auto) 0.8 % (0.0-1.8) 11/22/19 13:54 Lymph # 0.6 K/mm3 (1.2-5.4) L 11/22/19 13:54 [place] # 0.5 K/mm3 (0.0-0.8) 11/22/19 13:54 Eos # 0.1 K/mm3 (0.0-0.4) 11/22/19 13:54 Baso # 0.1 K/mm3 (0.0-0.1) 11/22/19 13:54 Seg Neutrophils % 86.6 % (40.0-70.0) H 11/22/19 13:54 Seg Neutrophils # 7.6 K/mm3 (1.8-7.7) 11/22/19 13:54 D-Dimer 804.84 ng/mlDDU (0-234) H 11/22/19 13:54 Sodium 139 mmol/L (137-145) 11/22/19 13:54 Potassium 3.9 mmol/L (3.6-5.0) 11/22/19 13:54 Chloride 100.9 mmol/L (98-107) 11/22/19 13:54 Carbon Dioxide 24 mmol/L (22-30) 11/22/19 13:54 Anion Gap 18 mmol/L 11/22/19 13:54 BUN 9 mg/dL (9-20) 11/22/19 13:54 Creatinine 0.7 mg/dL (0.8-1.5) L 11/22/19 13:54 Estimated GFR > 60 ml/min 11/22/19 13:54 BUN/Creatinine Ratio 13 % 11/22/19 13:54 Glucose 111 mg/dL (75-100) H 11/22/19 14:27 Lactic Acid 1.10 mmol/L (0.7-2.0) 11/22/19 16:59 Calcium 9.2 mg/dL (8.4-10.2) 11/22/19 13:54 Ferritin 124.1 ng/mL (13.0-400.0) 11/22/19 14:27 Total Bilirubin 0.50 mg/dL (0.1-1.2) 11/22/19 13:54 AST 28 units/L (5-40) 11/22/19 13:54 ALT 27 units/L (7-56) 11/22/19 13:54 Alkaline Phosphatase 86 units/L (35-129) 11/22/19 13:54 Lactate Dehydrogenase 353 units/L (91-180) H 11/22/19 14:27 Troponin T < 0.010 ng/mL (0.00-0.029) 11/22/19 13:54 C-Reactive Protein 1.50 mg/dL (0.00-1.30) H 11/22/19 14:27 Total Protein 7.2 g/dL (6.3-8.2) 11/22/19 13:54 Albumin 3.9 g/dL (3.9-5) 11/22/19 13:54 Albumin/Globulin Ratio 1.2 % 11/22/19 13:54 Urine Color Straw (Yellow) 11/22/19 14:50 Urine Turbidity Clear (Clear) 11/22/19 14:50 Urine pH 6.0 (5.0-7.0) 11/22/19 14:50 Ur Specific [place] 1.009 (1.003-1.030) 11/22/19 14:50 Urine Protein <15 mg/dl mg/dL (Negative) 11/22/19 14:50 Urine Glucose (UA) Neg mg/dL (Negative) 11/22/19 14:50 Urine Ketones Neg mg/dL (Negative) 11/22/19 14:50 Urine Blood Neg (Negative) 11/22/19 14:50 Urine Nitrite Neg (Negative) 11/22/19 14:50 Urine Bilirubin Neg (Negative) 11/22/19 14:50 Urine Urobilinogen < 2.0 mg/dL (<2.0) 11/22/19 14:50 Ur Leukocyte Esterase Neg (Negative) 11/22/19 14:50 Urine WBC (Auto) < 1.0 /HPF (0.0-6.0) 11/22/19 14:50 Urine RBC (Auto) < 1.0 /HPF (0.0-6.0) 11/22/19 14:50 U Epithel Cells (Auto) < 1.0 /HPF (0-13.0) 11/22/19 14:50 Coronavirus (PCR) Negative (Negative) 11/22/19 14:50 Microbiology: Microbiology 11/22/19 14:27 Peripheral/Venous Blood Culture - Preliminary NO GROWTH AFTER 24 HOURS 11/22/19 14:27 Peripheral/Venous Blood Culture - Preliminary NO GROWTH AFTER 24 HOURS Titus/IV: Voiding Method Urinal IV Catheter Type [Left Wrist] INT / Saline Lock IV Catheter Type [Right INT / Saline Lock Forearm] Active Medications - Current Medications Current Medications: Generic Name Dose Route Start Last Admin Trade Name Freq PRN Reason Stop Dose Admin Acetaminophen 650 mg 11/22/19 15:35 Tylenol PO Q4H PRN Pain MILD(1-3)/Fever >100.5/[place] Albuterol 2.5 mg 11/24/19 08:41 Proventil IH Q4HRT PRN Shortness Of Breath Albuterol/Ipratropium 1 ampul 11/24/19 14:00 11/24/19 13:47 Duoneb *Not For Prn Use* IH 1 ampul TIDRT LANDY Administration Arformoterol Tartrate 15 mcg 11/25/19 20:00 Brovana Nebu IH Q12HRT LANDY Azithromycin 500 mg 11/23/19 10:00 11/24/19 09:55 Zithromax PO 11/26/19 10:01 500 mg QDAY LANDY Administration Budesonide 0.5 mg 11/24/19 20:00 Pulmicort IH Q12HRT LANDY Colchicine 0.6 mg 11/23/19 10:00 11/24/19 09:55 Colchicine PO 0.6 mg QDAY LANDY Administration Doxazosin Mesylate 8 mg 11/23/19 10:00 11/24/19 09:54 Cardura PO 8 mg DAILY LANDY Administration Ceftriaxone Sodium 2 gm in 100 mls @ 200 mls/hr 11/22/19 14:00 11/24/19 13:01 Rocephin/Ns 2 Gm/100 Ml IV 11/26/19 14:29 100 mls/hr Q24H LANDY Administration Protocol Lorazepam 1 mg 11/22/19 13:54 11/23/19 06:33 Ativan IV 1 mg Q4H PRN Administration Anxiety Losartan Potassium 100 mg 11/23/19 10:00 11/24/19 10:05 Cozaar PO 100 mg DAILY LANDY Administration Methylprednisolone Sodium Succinate 40 mg 11/24/19 22:00 Solu-Medrol IV Q12HR LANDY Montelukast Sodium 10 mg 11/23/19 10:00 11/24/19 09:54 Singulair PO 10 mg DAILY LANDY Administration Nifedipine 30 mg 11/23/19 10:00 11/24/19 09:54 Procardia Xl PO 30 mg DAILY LANDY Administration Ondansetron HCl 4 mg 11/22/19 15:35 Zofran IV Q8H PRN Nausea And Vomiting Pantoprazole Sodium 40 mg 11/23/19 10:00 11/24/19 09:54 Protonix PO 40 mg DAILY LANDY Administration Sodium Chloride 10 ml 11/22/19 22:00 11/24/19 09:53 Sodium Chloride Flush Syringe 10 Ml IV 10 ml BID LANDY Administration Sodium Chloride 10 ml 11/22/19 15:35 Sodium Chloride Flush Syringe 10 Ml IV PRN PRN LINE FLUSH Spironolactone 25 mg 11/23/19 10:00 11/24/19 09:54 Aldactone PO 25 mg DAILY LANDY Administration
[2019-11-24] MEDS: methylPREDNISolone Sod Succinate 40 MG/1 ML INJ IV SCH (21:08)
[2019-11-25] MEDS: ARFORMOTEROL 15 MCG/2 ML NEBU IH SCH (09:09)
[2019-11-25] MEDS: IPRATROPIUM/ALBUTEROL SULFATE 3 ML AMPUL.NEB IH SCH ×2 (09:09→13:42)
[2019-11-25] MEDS: BUDESONIDE 0.5 MG/2 ML NEBU IH SCH (09:09)
[2019-11-25] MEDS: AZITHROMYCIN 250 MG TAB PO SCH (09:16)
[2019-11-25] MEDS: PANTOPRAZOLE 40 MG TAB PO SCH (09:16)
[2019-11-25] MEDS: NIFEdipine XL 30 MG TAB PO SCH (09:16)
[2019-11-25] MEDS: methylPREDNISolone Sod Succinate 40 MG/1 ML INJ IV SCH (09:16)
[2019-11-25] MEDS: COLCHICINE 0.6 MG CAP PO SCH (09:17)
[2019-11-25] MEDS: MONTELUKAST 10 MG TAB PO SCH (09:18)
[2019-11-25] MEDS: DOXAZOSIN 4 MG TAB PO SCH (09:19)
[2019-11-25] MEDS: SPIRONOLACTONE 25 MG TAB PO SCH (09:20)
--- NOTE | 2019-11-25 11:17 | Discharge Summary ---
Providers - Providers Date of Admission: 11/22/19 15:35 Attending physician: MIGUEL AGUILAR Hospitalization Condition: Stable Pertinent studies: Coronavirus PCR: Negative Hospital course: 74 YO Male with COPD, OA, GERD, Chronic Respiratory Failure on 2L Home Oxygen via [place], HTN, presented to ED for evaluation. He has experienced shortness of breath over the past 2 weeks prior to admission with worsening symptoms over the 2 to 3 days prior to admission. Patient acknowledged shortness of breath, dry cough, generalized weakness, subjective fever, malaise. Patient also acknowledged increased bronchodilator and nebulizer therapy use without relief. EMS was notified and upon arrival the patient was found to be in distress and subsequently transported to [facility] for further evaluation and care. Patient seen and evaluated in the emergency department. Lab and imaging studies reviewed. Patient found to be in respiratory distress. Patient tripoding. Patient leaning forward and using accessory muscles to breathe. Patient was unable to speak in complete sentences. Patient underwent chest x-ray which revealed a right middle lobe and right lower lobe pneumonia. Patient found to have a pulse oximetry of 88% on room air. Pt diagnosed with acute hypoxemic respiratory failure. Due to the patient's constellation of symptoms the patient is suspected to have coronavirus infection. Patient initiated on COVID-19 protocol. Patient admitted to medical floor due to increased risk of pulmonary decompensation. Infectious disease service consulted in ED. Pulmonology service consulted in ED. Advanced care planning conducted in ED. patient convalesced well during his hospital course. Patient symptoms improved daily with the aforementioned therapy. Coronavirus PCR was negative. The patient was ruled out for coronavirus 19 infection. Patient medically optimized and back to usual state of health. Patient seen and evaluated prior to discharge but with no significant new physical exam findings. Patient subsequently discharged. Patient to follow-up with primary care physician within 1 week. And to maintain all previously scheduled medical appointments. 35 minutes dedicated to patient discharge and coordination of care. Disposition: - TO HOME OR SELFCARE Time spent for discharge: 35 minutes - Discharge Diagnoses (1) Acute hypoxemic respiratory failure Status: Acute (2) Pneumonia Status: Acute Qualifiers: Pneumonia type: due to unspecified organism Laterality: right Lung location: lower lobe of lung Qualified Code(s): J18.9 - Pneumonia, unspecified organism Comment: Continue by mouth antibiotics for a total of 6-7 more days. (3) Suspected COVID-19 virus infection Status: Acute (4) Hypertension Status: Chronic Qualifiers: Hypertension type: essential hypertension Qualified Code(s): I10 - Essential (primary) hypertension Comment: Fairly well-controlled continue present medications. (5) Gastroesophageal reflux disease Status: Acute Qualifiers: Esophagitis presence: without esophagitis Qualified Code(s): K21.9 - Gastro-esophageal reflux disease without esophagitis (6) DVT prophylaxis Status: Acute Core Measure Documentation - Palliative Care Palliative Care/ Comfort Measures: Not Applicable - Core Measures Any of the following diagnoses?: none Exam - Constitutional Vitals: Temp Pulse Resp BP Pulse Ox 97.8 F 66 22 118/64 100 11/25/19 03:33 11/25/19 10:00 11/25/19 10:00 11/25/19 09:20 11/25/19 09:15 General appearance: Present: cachectic - EENT Eyes: Present: PERRL ENT: hearing intact, clear oral mucosa - Neck Neck: Present: supple, normal ROM - Respiratory Respiratory effort: normal Respiratory: bilateral: CTA - Cardiovascular Heart Sounds: Present: S1 & S2. Absent: rub, click - Extremities Extremities: pulses symmetrical, No edema Peripheral Pulses: within normal limits - Abdominal General gastrointestinal: Present: soft, non-tender, non-distended, normal bowel sounds Male genitourinary: Present: normal - Integumentary Integumentary: Present: clear, warm, dry - Musculoskeletal Musculoskeletal: gait normal, strength equal bilaterally - Psychiatric Psychiatric: appropriate mood/affect, intact judgment & insight - Neurologic Neurologic: CNII-XII intact, moves all extremities Plan Activity: advance as tolerated Follow up with: PRIMARY CARE, [Referring] - 3-5 Days Prescriptions: LORazepam [Ativan] 1 mg PO QHS #30 tab predniSONE [Deltasone] 10 mg PO QDAY #30 tab Morphine Concentrate [MORPHINE Conc 20 MG/ML ORAL LIQ] 5 mg PO Q8HR PRN #30 oralsyr PRN Reason: Pain , Severe (7-10) Prednisone [predniSONE 10 mg (6-Day Pack, 21 Tabs)] 10 mg PO .TAPER #1 tab.ds.pk Hydrocodone/Chlorphen P-Stirex [Tussionex Pennkinetic Susp] 5 ml PO BID #250 ml Azithromycin [Zithromax TAB] 250 mg PO QDAY #6 tablet
[2019-11-25] MEDS: LOSARTAN 50 MG TAB PO SCH (12:52)
[2019-11-25 12:53] VITALS: BP 136/72
[2019-11-25] MEDS: cefTRIAXone/NS 2 GM/100 ML 2 GM/100 ML BAG IV SCH (13:28)
== END 2019-11-25 16:23 | disposition home or self-care (01) | DRG 193 ==
LOC: ED 13:19 → IMCU 15:35 → 4A 11-23 22:33
PROVIDERS: ADMIT Internal Medicine; ATTEND Internal Medicine
PROC: 5A09357 Assistance with Respiratory Ventilation, Less than 24 Consecutive Hours, Continuous Positive Airway Pressure (ICD-10-PCS; principal; 2019-11-22)
DX: J18.9 Pneumonia, unspecified organism (principal); R65.11 Systemic inflammatory response syndrome (SIRS) of non-infectious origin with acute organ dysfunction; J96.21 Acute and chronic respiratory failure with hypoxia; J44.1 Chronic obstructive pulmonary disease with (acute) exacerbation; J44.0 Chronic obstructive pulmonary disease with (acute) lower respiratory infection; Z99.81 Dependence on supplemental oxygen; I10 Essential (primary) hypertension; K21.9 Gastro-esophageal reflux disease without esophagitis; M19.90 Unspecified osteoarthritis, unspecified site; Z82.49 Family history of ischemic heart disease and other diseases of the circulatory system; Z79.899 Other long term (current) drug therapy; Z72.89 Other problems related to lifestyle; Z03.818 Encounter for observation for suspected exposure to other biological agents ruled out
CPT/HCPCS: 36415; 71045; 80053; 81001; 82140; 82728; 82947; 83615; 84145; 84484; 85025; 85379; 86140; 87040; 94640; 94644; 94760; G0378; J0456; J0696; J2060; J2920; J2930; J3475; J7030; J7050; U0003

== ENCOUNTER 2020-08-08 03:42 | Observation (INO) | payer MEDICARE ==
[2020-08-08] MEDS ORDERED: CEFEPIME/NS 1 GM/100 ML 1 GM/100 ML BAG IV ONE (03:52)
[2020-08-08] MEDS ORDERED: methylPREDNISolone Sod Succinate 125 MG/2 ML INJ IV ONE (03:52)
[2020-08-08] MEDS ORDERED: MAGNESIUM SULFATE 2 GM/50 ML BAG IV ONE (03:52)
[2020-08-08] MEDS ORDERED: ALBUTEROL 2.5 MG/3 ML NEBU IH ONE (03:52)
[2020-08-08] MEDS ORDERED: AZITHROMYCIN/NS 500 MG/250 ML 500 MG/250 ML BAG IV ONE (03:52)
--- NOTE | 2020-08-08 03:57 | Emergency Department Report ---
ED Shortness of Breath HPI - General Stated Complaint: SHORTNESS OB BREATH Time Seen by Provider: 08/08/20 03:51 Source: patient, EMS Mode of arrival: Ambulatory Limitations: No Limitations - History of Present Illness Initial Comments: Patient is a 69-year-old male emergency room complaints of shortness of breath and difficulty breathing. Patient brought in by EMS. Report received from EMS. Patient states the patient became hypoxic with minimal exertion. Patient states he is on 2L of oxygen at home. Patient patient states that his shortness of breath. Better with rest and worse with exertion. Patient has dyspnea on exertion. Patient denies chest pain. Patient states he was seen at [facility] yesterday and diagnosed with pneumonia. Patient states he is unable to get his medication from the pharmacy. Patient denies recent travel. Patient denies recent international travel. Patient denies exposure to the novel coronavirus. Patient denies sick contacts. Patient denies fever and chills. Patient denies loss of smell. Patient denies diarrhea. Patient denies coming in contact with anybody with symptoms of the novel coronavirus. MD Complaint: shortness of breath, cough -: Sudden Severity: severe Consistency: constant Improves With: rest, upright position Worsens With: lying flat, exertion Known History Of: COPD Context: recent URI Treatments Prior to Arrival: oxygen - Related Data Home Oxygen Therapy: Yes Home Oxygen Amount: 2 Liters Home Medications Medication Instructions Recorded Confirmed Last Taken Albuterol Mdi (or & Nicu Only) 2 puff IH QID PRN 08/28/13 11/22/19 01/22/16 08:00 [ProAir HFA Inhaler] Budesoni/Formotero 160-4.5(Nf) 16 mcg INHALATION BID 08/28/13 11/22/19 01/21/16 21:00 [Symbicort 160-4.5 (Nf)] Doxazosin [Cardura] 8 mg PO DAILY 08/28/13 11/22/19 01/22/16 08:00 Fluticasone Propionate [Flonase] 50 mcg PF BID 08/28/13 11/22/19 01/21/16 21:00 Losartan [Cozaar] 100 mg PO DAILY 08/28/13 11/22/19 01/22/16 08:00 Montelukast [Singulair] 10 mg PO DAILY 0211/22/19 01/22/16 08:00 NIFEdipine [NIFEdipine ER] 30 mg PO DAILY 08/28/13 11/22/19 01/22/16 08:00 Spironolactone 25 mg PO DAILY 08/28/13 11/22/19 01/22/16 08:00 Colcrys 0.5 mg PO DAILY 01/22/16 11/22/19 01/22/16 08:00 Esomeprazole Magnesium 40 mg PO DAILY 01/22/16 11/22/19 01/22/16 08:00 Symbicort 80-4.5 (Nf) 80 mcg INHALATION BID 01/22/16 11/22/19 Unknown Ativan INJ 1 mg IV Q4H PRN 11/22/19 11/22/19 Unknown Colchicine 0.6 mg PO DAILY 11/23/19 11/23/19 Unknown Diclofenac 1% topical gel 4 g TP BID 11/23/19 11/23/19 Unknown Ipratropium/Albuter (Nf) 17 mcg INHALATION TID 11/23/19 11/23/19 Unknown Pantoprazole [Protonix TAB] 20 mg PO DAILY 11/23/19 11/23/19 Unknown Rosuvastatin (Nf) 20 mg PO DAILY 11/23/19 11/23/19 Unknown predniSONE [Deltasone] 5 mg PO DAILY 11/23/19 11/23/19 Unknown Previous Rx's Medication Instructions Recorded Last Taken Type Albuterol Sulfate [Proair 90 mcg IH Q4HR PRN #2 aer.pow.ba 11/25/15 01/22/16 10:00 Rx Respiclick] Albuterol Sulfate [Albuterol 0.63% 0.63 mg IH Q4H PRN #25 vial.neb 01/22/16 Unknown Rx NEBS] Azithromycin [Zithromax Z-MALORIE] 1 dose PO DAILY 5 Days tab 03/06/16 Unknown Rx Azithromycin [Zithromax TAB] 250 mg PO QDAY #6 tablet 11/25/19 Unknown Rx Hydrocodone/Chlorphen P-Stirex 5 ml PO BID #250 ml 11/25/19 Unknown Rx [Tussionex Pennkinetic Susp] LORazepam [Ativan] 1 mg PO QHS #30 tab 11/25/19 Unknown Rx Morphine Concentrate [MORPHINE 5 mg PO Q8HR PRN #30 oralsyr 11/25/19 Unknown Rx Conc 20 MG/ML ORAL LIQ] Prednisone [predniSONE 10 mg 10 mg PO .TAPER #1 tab.ds.pk 11/25/19 Unknown Rx (6-Day Pack, 21 Tabs)] predniSONE 10 mg PO QDAY #30 tab 11/25/19 Unknown Rx Allergies Allergy/AdvReac Type Severity Reaction Status Date / Time lisinopril Allergy Angioedema Verified 11/25/15 20:02 monosodium glutamate Allergy Unknown Verified 11/22/19 14:03 tiotropium bromide Allergy Rash Verified 11/25/15 20:02 [From Spiriva with HandiHaler] ED Review of Systems ROS: Stated complaint: SHORTNESS OB BREATH Other details as noted in HPI Constitutional: denies: chills, fever Eyes: denies: eye pain, eye discharge, vision change ENT: denies: ear pain, throat pain Respiratory: shortness of breath, SOB with exertion, SOB at rest. denies: cough, wheezing Cardiovascular: denies: chest pain, palpitations Endocrine: no symptoms reported Gastrointestinal: denies: abdominal pain, nausea, diarrhea Genitourinary: denies: urgency, dysuria Musculoskeletal: denies: back pain, joint swelling, arthralgia Skin: denies: rash, lesions Neurological: denies: headache, weakness, paresthesias Psychiatric: denies: anxiety, depression Hematological/Lymphatic: denies: easy bleeding, easy bruising ED Past Medical Hx - Past Medical History Previous Medical History?: Yes Hx Hypertension: Yes Hx Heart Attack/AMI: No Hx Congestive Heart Failure: No Hx Diabetes: No Hx Deep Vein Thrombosis: No Hx Pulmonary Embolism: No Hx GERD: Yes Hx Liver Disease: No Hx Renal Disease: No Hx Sickle Cell Disease: No Hx Arthritis: Yes Hx Headaches / Migraines: No Hx Seizures: No Hx Kidney Stones: No Hx Asthma: No Hx COPD: Yes Hx Tuberculosis: No Hx Dementia: No Hx HIV: No - Surgical History Past Surgical History?: No Hx Coronary Stent: No Hx Open Heart Surgery: No Hx Pacemaker: No Hx Internal Defibrillator: No Hx Cholecystectomy: No Hx Appendectomy: No Hx Breast Surgery: No - Family History Family history: no significant - Social History Smoking Status: Former Smoker Substance Use Type: None - Medications Home Medications: Home Medications Medication Instructions Recorded Confirmed Last Taken Type Albuterol Mdi (or & Nicu Only) 2 puff IH QID PRN 08/28/13 11/22/19 01/22/16 08:00 History [ProAir HFA Inhaler] Budesoni/Formotero 160-4.5(Nf) 16 mcg INHALATION BID 08/28/13 11/22/19 01/21/16 21:00 History [Symbicort 160-4.5 (Nf)] Doxazosin [Cardura] 8 mg PO DAILY 08/28/13 11/22/19 01/22/16 08:00 History Fluticasone Propionate [Flonase] 50 mcg PF BID 08/28/13 11/22/19 01/21/16 21:00 History Losartan [Cozaar] 100 mg PO DAILY 08/28/13 11/22/19 01/22/16 08:00 History Montelukast [Singulair] 10 mg PO DAILY 08/28/13 11/22/19 01/22/16 08:00 History NIFEdipine [NIFEdipine ER] 30 mg PO DAILY 08/28/13 11/22/19 01/22/16 08:00 History Spironolactone 25 mg PO DAILY 08/28/13 11/22/19 01/22/16 08:00 History Albuterol Sulfate [Proair 90 mcg IH Q4HR PRN #2 aer.pow.ba 11/25/15 11/22/19 01/22/16 10:00 Rx Respiclick] Albuterol Sulfate [Albuterol 0.63% 0.63 mg IH Q4H PRN #25 vial.neb 01/22/16 11/22/19 Unknown Rx NEBS] Colcrys 0.5 mg PO DAILY 01/22/16 11/22/19 01/22/16 08:00 History Esomeprazole Magnesium 40 mg PO DAILY 01/22/16 11/22/19 01/22/16 08:00 History Symbicort 80-4.5 (Nf) 80 mcg INHALATION BID 01/22/16 11/22/19 Unknown History Azithromycin [Zithromax Z-MALORIE] 1 dose PO DAILY 5 Days tab 03/06/16 11/22/19 Unknown Rx Ativan INJ 1 mg IV Q4H PRN 11/22/19 11/22/19 Unknown History Colchicine 0.6 mg PO DAILY 11/23/19 11/23/19 Unknown History Diclofenac 1% topical gel 4 g TP BID 11/23/19 11/23/19 Unknown History Ipratropium/Albuter (Nf) 17 mcg INHALATION TID 11/23/19 11/23/19 Unknown History Pantoprazole [Protonix TAB] 20 mg PO DAILY 11/23/19 11/23/19 Unknown History Rosuvastatin (Nf) 20 mg PO DAILY 11/23/19 11/23/19 Unknown History predniSONE [Deltasone] 5 mg PO DAILY 11/23/19 11/23/19 Unknown History Azithromycin [Zithromax TAB] 250 mg PO QDAY #6 tablet 11/25/19 Unknown Rx Hydrocodone/Chlorphen P-Stirex 5 ml PO BID #250 ml 11/25/19 Unknown Rx [Tussionex Pennkinetic Susp] LORazepam [Ativan] 1 mg PO QHS #30 tab 11/25/19 Unknown Rx Morphine Concentrate [MORPHINE 5 mg PO Q8HR PRN #30 oralsyr 11/25/19 Unknown Rx Conc 20 MG/ML ORAL LIQ] Prednisone [predniSONE 10 mg 10 mg PO .TAPER #1 tab.ds.pk 11/25/19 Unknown Rx (6-Day Pack, 21 Tabs)] predniSONE 10 mg PO QDAY #30 tab 11/25/19 Unknown Rx ED Physical Exam - General General appearance: alert, in distress - Head Head exam: Present: atraumatic, normocephalic - Eye Eye exam: Present: normal appearance - ENT ENT exam: Present: mucous membranes dry - Neck Neck exam: Present: normal inspection - Respiratory Respiratory exam: Present: respiratory distress, wheezes, accessory muscle use, decreased breath sounds, prolonged expiratory - Cardiovascular Cardiovascular Exam: Present: regular rate, normal rhythm. Absent: systolic m urmur, diastolic murmur, rubs, gallop - GI/Abdominal GI/Abdominal exam: Present: soft, normal bowel sounds. Absent: distended, tenderness, guarding - Rectal Rectal exam: Present: deferred - Extremities Exam Extremities exam: Present: normal inspection - Back Exam Back exam: Present: normal inspection - Neurological Exam Neurological exam: Present: alert, oriented X3 - Psychiatric Psychiatric exam: Present: normal affect, normal mood - Skin Skin exam: Present: warm, dry, intact, normal color. Absent: rash ED Course Vital Signs 08/08/20 08/08/20 08/08/20 01:18 01:30 02:00 Temperature Pulse Rate 102 H 97 H Respiratory 15 16 Rate Blood Pressure 118/77 O2 Sat by Pulse 100 100 100 Oximetry 08/08/20 08/08/20 08/08/20 02:30 03:00 03:53 Temperature Pulse Rate 103 H 95 H 127 H Respiratory 17 14 35 H Rate Blood Pressure 112/71 112/71 O2 Sat by Pulse 100 100 98 Oximetry 08/08/20 08/08/20 08/08/20 03:58 04:01 04:19 Temperature 97.7 F Pulse Rate 129 H 126 H Respiratory 30 H 33 H 30 H Rate Blood Pressure 160/78 160/78 O2 Sat by Pulse 98 100 Oximetry 08/08/20 04:31 Temperature Pulse Rate 99 H Respiratory 19 Rate Blood Pressure 112/71 O2 Sat by Pulse 99 Oximetry - Reevaluation(s) Reevaluation #1: Initial evaluation done. Patient was placed on BiPAP. 08/08/20 03:57 Reevaluation #2: Patient is on BiPAP. Patient states he is feeling better. Patient's work to breathe has improved. 08/08/20 04:11 Reevaluation #3: Patient states he is feeling better. Patient still having wheezing throughout. I discussed all results with patient. I discussed plan of care with patient. Patient agrees with plan of care and admission. Patient to be admitted to the hospitalist service. 08/08/20 04:52 - Consultations Consultation #1: Hospitalist consulted for admission. Hospitalist to admit patient. 08/08/20 04:52 ED Medical Decision Making - Lab Data Result diagrams: 08/08/20 04:02 08/08/20 04:02 - Radiology Data Radiology results: report reviewed CHEST 1 VIEW 4:24 AM INDICATION / CLINICAL INFORMATION: Dyspnea. COMPARISON: 11/22/19. FINDINGS: SUPPORT DEVICES: None. HEART / MEDIASTINUM: The heart size and pulmonary vasculature are normal. LUNGS / PLEURA: The lungs are hyperinflated. Right basilar parenchymal opacity has cleared since the prior exam. No new abnormality is seen. No pneumothorax. ADDITIONAL FINDINGS: No significant additional findings. IMPRESSION: Emphysema without acute abnormality. - Medical Decision Making Patient is a 74-year-old male that presents via EMS to the ER for shortness of breath difficulty breathing and hypoxia. Patient was placed on BiPAP after initial evaluation. Patient found to be in respiratory distress, increased work of breathing and wheezing throughout. Patient was also given Solu-Medrol and DuoNeb and magnesium. Patient responded well to treatment. Patient had labs done which were essentially unremarkable. Patient's lactic acid is negative. Patient's clinical glucose with a COPD exacerbation and respiratory failure. Patient admitted to the hospitalist service for further evaluation treatment... - Differential Diagnosis COPD exacerbation, pneumonia, Critical Care Time: Yes Critical care time in (mins) excluding proc time.: 35 Critical care attestation.: If time is entered above; I have spent that time in minutes in the direct care of this critically ill patient, excluding procedure time. Critical Care Time: 35 minutes ED Disposition Clinical Impression: Acute hypoxemic respiratory failure, COPD exacerbation, SOB (shortness of breath) Disposition: DC-09 OP ADMIT IP TO THIS HOSP Is pt being admited?: Yes Does the pt Need Aspirin: No Condition: Critical Instructions: Chronic Bronchitis (ED) Time of Disposition: 04:56
[2020-08-08 04:23] LABS: Basophils # (Auto) 0.1 K/mm3 (0.0-0.1); Basophils % (Auto) 0.8 % (0.0-1.8); Eosinophils # (Auto) 0.4 K/mm3 (0.0-0.4); Hematocrit 42.6 % (35.5-45.6); Hemoglobin 14.1 gm/dl (11.8-15.2); Lymphocytes # (Auto) 0.8 K/mm3 (1.2-5.4); Lymphocytes % (Auto) 8.5 % (13.4-35.0); Mean Corpuscular HGB Conc 33 % (32-34); Mean Corpuscular Volume 86 fl (84-94); Monocytes # (Auto) 0.9 K/mm3 (0.0-0.8); Monocytes % (Auto) 10.1 % (0.0-7.3); Platelet Count 206 K/mm3 (140-440); Red Blood Count 4.96 M/mm3 (3.65-5.03); Red Cell Distribution Width 15.4 % (13.2-15.2)
--- NOTE | 2020-08-08 04:45 | XRay Report ---
CHEST 1 VIEW 4:24 AM INDICATION / CLINICAL INFORMATION: Dyspnea. COMPARISON: 11/22/19. FINDINGS: SUPPORT DEVICES: None. HEART / MEDIASTINUM: The heart size and pulmonary vasculature are normal. LUNGS / PLEURA: The lungs are hyperinflated. Right basilar parenchymal opacity has cleared since the prior exam. No new abnormality is seen. No pneumothorax. ADDITIONAL FINDINGS: No significant additional findings. IMPRESSION: Emphysema without acute abnormality. Signer Name: Nba Hart MD Signed: 08/08/2020 4:41 AM Workstation Name: [id number]
[2020-08-08 04:46] LABS: Alanine Aminotransferase 15 units/L (7-56); BUN/Creatinine Ratio 14; Blood Urea Nitrogen 13 mg/dL (9-20); Hemolysis Index 0
--- NOTE | 2020-08-08 05:20 | History and Physical Report ---
History of Present Illness Date of examination: 08/08/20 Chief complaint: Shortness of breath COPD exacerbation History of present illness: 69-year-old male was brought to the emergency room of shortness of breath and difficulty breathing since yesterday. Patient is on home oxygen 2L/min at home since yesterday patient is compared shortness of breath and the patient became hypoxic with minimal exertion. SOB Better with rest and worse with exertion. Patient has dyspnea on exertion. Patient denies chest pain. Patient states he was seen at [facility] yesterday and diagnosed with pneumonia. Patient states he is unable to get his medication from the pharmacy. Past History Past Medical History: COPD Medications and Allergies Allergies Allergy/AdvReac Type Severity Reaction Status Date / Time lisinopril Allergy Angioedema Verified 11/25/15 20:02 monosodium glutamate Allergy Unknown Verified 11/22/19 14:03 tiotropium bromide Allergy Rash Verified 11/25/15 20:02 [From Spiriva with HandiHaler] Home Medications Medication Instructions Recorded Confirmed Last Taken Type Albuterol Mdi (or & Nicu Only) 2 puff IH QID PRN 08/28/13 11/22/19 01/22/16 08:00 History [ProAir HFA Inhaler] Budesoni/Formotero 160-4.5(Nf) 16 mcg INHALATION BID 08/28/13 11/22/19 01/21/16 21:00 History [Symbicort 160-4.5 (Nf)] Doxazosin [Cardura] 8 mg PO DAILY 08/28/13 11/22/19 01/22/16 08:00 History Fluticasone Propionate [Flonase] 50 mcg PF BID 08/28/13 11/22/19 01/21/16 21:00 History Losartan [Cozaar] 100 mg PO DAILY 08/28/13 11/22/19 01/22/16 08:00 History Montelukast [Singulair] 10 mg PO DAILY 08/28/13 11/22/19 01/22/16 08:00 History NIFEdipine [NIFEdipine ER] 30 mg PO DAILY 08/28/13 11/22/19 01/22/16 08:00 History Spironolactone 25 mg PO DAILY 08/28/13 11/22/19 01/22/16 08:00 History Albuterol Sulfate [Proair 90 mcg IH Q4HR PRN #2 aer.pow.ba 11/25/15 11/22/19 01/22/16 10:00 Rx Respiclick] Albuterol Sulfate [Albuterol 0.63% 0.63 mg IH Q4H PRN #25 vial.neb 01/22/16 11/22/19 Unknown Rx NEBS] Colcrys 0.5 mg PO DAILY 01/22/16 11/22/19 01/22/16 08:00 History Esomeprazole Magnesium 40 mg PO DAILY 01/22/16 11/22/19 01/22/16 08:00 History Symbicort 80-4.5 (Nf) 80 mcg INHALATION BID 01/22/16 11/22/19 Unknown History Azithromycin [Zithromax Z-MALORIE] 1 dose PO DAILY 5 Days tab 03/06/16 11/22/19 Unknown Rx Ativan INJ 1 mg IV Q4H PRN 11/22/19 11/22/19 Unknown History Colchicine 0.6 mg PO DAILY 11/23/19 11/23/19 Unknown History Diclofenac 1% topical gel 4 g TP BID 11/23/19 11/23/19 Unknown History Ipratropium/Albuter (Nf) 17 mcg INHALATION TID 11/23/19 11/23/19 Unknown History Pantoprazole [Protonix TAB] 20 mg PO DAILY 11/23/19 11/23/19 Unknown History Rosuvastatin (Nf) 20 mg PO DAILY 11/23/19 11/23/19 Unknown History predniSONE [Deltasone] 5 mg PO DAILY 11/23/19 11/23/19 Unknown History Azithromycin [Zithromax TAB] 250 mg PO QDAY #6 tablet 11/25/19 Unknown Rx Hydrocodone/Chlorphen P-Stirex 5 ml PO BID #250 ml 11/25/19 Unknown Rx [Tussionex Pennkinetic Susp] LORazepam [Ativan] 1 mg PO QHS #30 tab 11/25/19 Unknown Rx Morphine Concentrate [MORPHINE 5 mg PO Q8HR PRN #30 oralsyr 11/25/19 Unknown Rx Conc 20 MG/ML ORAL LIQ] Prednisone [predniSONE 10 mg 10 mg PO .TAPER #1 tab.ds.pk 11/25/19 Unknown Rx (6-Day Pack, 21 Tabs)] predniSONE 10 mg PO QDAY #30 tab 11/25/19 Unknown Rx Review of Systems Cardiovascular: shortness of breath Respiratory: cough, shortness of breath, dyspnea on exertion Exam - Constitutional Vitals: Temp Pulse Resp BP Pulse Ox 97.7 F 100 H 20 112/71 99 08/08/20 03:58 08/08/20 04:59 08/08/20 04:59 08/08/20 04:31 08/08/20 04:31 General appearance: Present: no acute distress, well-nourished - EENT Eyes: Present: PERRL ENT: hearing intact, clear oral mucosa - Neck Neck: Present: supple, normal ROM - Respiratory Respiratory effort: normal Respiratory: bilateral: diminished, wheezing - Cardiovascular Heart Sounds: Present: S1 & S2. Absent: rub, click - Extremities Extremities: pulses symmetrical, No edema Peripheral Pulses: within normal limits - Abdominal General gastrointestinal: Present: soft, non-tender, non-distended, normal bowel sounds Male genitourinary: Present: normal - Integumentary Integumentary: Present: clear, warm, dry - Musculoskeletal Musculoskeletal: gait normal, strength equal bilaterally - Psychiatric Psychiatric: appropriate mood/affect, intact judgment & insight - Neurologic Neurologic: CNII-XII intact, moves all extremities Results - Labs CBC & Chem 7: 08/08/20 04:02 08/08/20 04:02 Labs: Laboratory Last Values WBC 9.1 K/mm3 (4.5-11.0) 08/08/20 04:02 RBC 4.96 M/mm3 (3.65-5.03) 08/08/20 04:02 Hgb 14.1 gm/dl (11.8-15.2) 08/08/20 04:02 Hct 42.6 % (35.5-45.6) 08/08/20 04:02 MCV 86 fl (84-94) 08/08/20 04:02 MCH 28 pg (28-32) 08/08/20 04:02 MCHC 33 % (32-34) 08/08/20 04:02 RDW 15.4 % (13.2-15.2) H 08/08/20 04:02 Plt Count 206 K/mm3 (140-440) 08/08/20 04:02 Lymph % (Auto) 8.5 % (13.4-35.0) L 08/08/20 04:02 Thomas % (Auto) 10.1 % (0.0-7.3) H 08/08/20 04:02 Eos % (Auto) 4.0 % (0.0-4.3) 08/08/20 04:02 Baso % (Auto) 0.8 % (0.0-1.8) 08/08/20 04:02 Lymph # (Auto) 0.8 K/mm3 (1.2-5.4) L 08/08/20 04:02 Thomas # (Auto) 0.9 K/mm3 (0.0-0.8) H 08/08/20 04:02 Eos # (Auto) 0.4 K/mm3 (0.0-0.4) 08/08/20 04:02 Baso # (Auto) 0.1 K/mm3 (0.0-0.1) 08/08/20 04:02 Seg Neutrophils % 76.6 % (40.0-70.0) H 08/08/20 04:02 Seg Neutrophils # 7.0 K/mm3 (1.8-7.7) 08/08/20 04:02 Sodium 141 mmol/L (137-145) 08/08/20 04:02 Potassium 4.1 mmol/L (3.6-5.0) 08/08/20 04:02 Chloride 104.2 mmol/L (98-107) 08/08/20 04:02 Carbon Dioxide 26 mmol/L (22-30) 08/08/20 04:02 Anion Gap 15 mmol/L 08/08/20 04:02 BUN 13 mg/dL (9-20) 08/08/20 04:02 Creatinine 0.9 mg/dL (0.8-1.3) 08/08/20 04:02 Estimated GFR > 60 ml/min 08/08/20 04:02 BUN/Creatinine Ratio 14 % 08/08/20 04:02 Glucose 98 mg/dL (75-100) 08/08/20 04:02 Lactic Acid 1.10 mmol/L (0.7-2.0) 08/08/20 04:02 Calcium 9.0 mg/dL (8.4-10.2) 08/08/20 04:02 Total Bilirubin 0.60 mg/dL (0.1-1.2) 08/08/20 04:02 AST 18 units/L (5-40) 08/08/20 04:02 ALT 15 units/L (7-56) 08/08/20 04:02 Alkaline Phosphatase 61 units/L (35-129) 08/08/20 04:02 Total Protein 6.5 g/dL (6.3-8.2) 08/08/20 04:02 Albumin 4.0 g/dL (3.9-5) 08/08/20 04:02 Albumin/Globulin Ratio 1.6 % 08/08/20 04:02 - Imaging and Cardiology Chest x-ray: image reviewed Titus/IV: IV Catheter Type [Left Forearm INT / Saline Lock ] Assessment and Plan - Patient Problems (1) Acute hypoxemic respiratory failure Current Visit: Yes Status: Acute Plan to address problem: Admit the patient to the medical telemetry. Patient is on BiPAP. DuoNeb by nebulizer every 4 hours as needed. Solu-Medrol 40 mg IV every 8 hours. Rocephin 1 g IV daily and Zithromax 500 mg IV daily. We will do the blood culture and sputum culture. Recheck CBC BMP in the morning. Heparin 5000 units subcu every 8 hours for DVT prophylaxis and Protonix 40 mg p.o. daily for GI prophylaxis (2) COPD exacerbation Current Visit: Yes Status: Acute Plan to address problem: Patient is on BiPAP. DuoNeb by nebulizer every 4 hours as needed. Solu-Medrol 40 mg IV every 8 hours. Rocephin 1 g IV daily and Zithromax 500 mg IV daily. We will do the blood culture and sputum culture. Recheck CBC BMP in the morning.
[2020-08-08] MEDS: IPRATROPIUM/ALBUTEROL SULFATE 3 ML AMPUL.NEB IH SCH ×3 (07:37→21:35)
[2020-08-08] MEDS: cefTRIAXone/NS 1 GM/50 ML 1 GM/50 ML BAG IV SCH (08:21)
[2020-08-08] MEDS ORDERED: PNEUMOCOCCAL 23 Valent 0.5 ML VIAL IM ONE (09:53)
--- NOTE | 2020-08-08 10:35 | Event Note ---
Date: 08/08/20 Patient was seen and evaluated this morning, patient stated his shortness of breath is getting better. Patient is on 4 L of oxygen. We will do Covid test. Continue with management as outlined in HPI. Vital signs were noted.
[2020-08-08] MEDS: methylPREDNISolone Sod Succinate 40 MG/1 ML INJ IV SCH ×2 (13:28→22:05)
[2020-08-09] MEDS: IPRATROPIUM/ALBUTEROL SULFATE 3 ML AMPUL.NEB IH SCH ×4 (02:20→20:47)
[2020-08-09] MEDS: methylPREDNISolone Sod Succinate 40 MG/1 ML INJ IV SCH ×3 (05:22→21:37)
[2020-08-09] MEDS: AZITHROMYCIN/NS 500 MG/250 ML 500 MG/250 ML BAG IV SCH (05:22)
[2020-08-09] MEDS: cefTRIAXone/NS 1 GM/50 ML 1 GM/50 ML BAG IV SCH (05:22)
[2020-08-09 06:45] LABS: BUN/Creatinine Ratio 18; Blood Urea Nitrogen 16 mg/dL (9-20); Calcium 9.2 mg/dL (8.4-10.2); Hemolysis Index 12
--- NOTE | 2020-08-09 08:44 | Progress Note ---
Assessment and Plan Assessment and plan: (1) Acute hypoxemic respiratory failure Current Visit: Yes Status: Acute Plan to address problem: Admit the patient to the medical telemetry. Patient is on BiPAP. DuoNeb by nebulizer every 4 hours as needed. Solu-Medrol 40 mg IV every 8 hours. Rocephin 1 g IV daily and Zithromax 500 mg IV daily. We will do the blood culture and sputum culture. Recheck CBC BMP in the morning. Heparin 5000 units subcu every 8 hours for DVT prophylaxis and Protonix 40 mg p.o. daily for GI prophylaxis (2) COPD exacerbation Current Visit: Yes Status: Acute Plan to address problem: Patient is on BiPAP. DuoNeb by nebulizer every 4 hours as needed. Solu-Medrol 40 mg IV every 8 hours. Rocephin 1 g IV daily and Zithromax 500 mg IV daily. We will do the blood culture and sputum culture. Recheck CBC BMP in the morning. GERD; resume home medication BPH; resume home meds Disposition; possible discharge in Am if stable. History Interval history: Patient was seen and evaluated this morning, patient is breathing better. Patient off BiPAP and currently on 4 L of intranasal oxygen Hospitalist Physical - Physical exam Narrative exam: Not in cardiopulmonary distress. The patient appeared well nourished and normally developed. Vital signs as documented. Head exam is unremarkable. No scleral icterus . Neck is without jugular venous distension, thyromegaly, or carotid bruits. Lungs are clear to auscultation. Cardiac exam reveals regular rate and Rhythm. Abdominal exam reveals normal bowel sounds, nontender, no organomegaly. Extremities are nonedematous and both femoral and pedal pulses are normal. HOME HEALTH CAREGIVER: Alert and oriented 3. No focal weakness. - Constitutional Vitals: Temp Pulse Resp BP Pulse Ox 97.8 F 92 H 20 139/65 97 08/09/20 05:30 08/09/20 07:59 08/09/20 07:59 08/09/20 05:30 08/09/20 07:59 General appearance: Present: no acute distress, well-nourished Results - Labs CBC & Chem 7: 08/08/20 04:02 08/09/20 05:20 Labs: Laboratory Last Values WBC 9.1 K/mm3 (4.5-11.0) 08/08/20 04:02 RBC 4.96 M/mm3 (3.65-5.03) 08/08/20 04:02 Hgb 14.1 gm/dl (11.8-15.2) 08/08/20 04:02 Hct 42.6 % (35.5-45.6) 08/08/20 04:02 MCV 86 fl (84-94) 08/08/20 04:02 MCH 28 pg (28-32) 08/08/20 04:02 MCHC 33 % (32-34) 08/08/20 04:02 RDW 15.4 % (13.2-15.2) H 08/08/20 04:02 Plt Count 206 K/mm3 (140-440) 08/08/20 04:02 Lymph % (Auto) 8.5 % (13.4-35.0) L 08/08/20 04:02 Pike % (Auto) 10.1 % (0.0-7.3) H 08/08/20 04:02 Eos % (Auto) 4.0 % (0.0-4.3) 08/08/20 04:02 Baso % (Auto) 0.8 % (0.0-1.8) 08/08/20 04:02 Lymph # (Auto) 0.8 K/mm3 (1.2-5.4) L 08/08/20 04:02 Pike # (Auto) 0.9 K/mm3 (0.0-0.8) H 08/08/20 04:02 Eos # (Auto) 0.4 K/mm3 (0.0-0.4) 08/08/20 04:02 Baso # (Auto) 0.1 K/mm3 (0.0-0.1) 08/08/20 04:02 Seg Neutrophils % 76.6 % (40.0-70.0) H 08/08/20 04:02 Seg Neutrophils # 7.0 K/mm3 (1.8-7.7) 08/08/20 04:02 Sodium 140 mmol/L (137-145) 08/09/20 05:20 Potassium 4.4 mmol/L (3.6-5.0) 08/09/20 05:20 Chloride 102.3 mmol/L (98-107) 08/09/20 05:20 Carbon Dioxide 24 mmol/L (22-30) 08/09/20 05:20 Anion Gap 18 mmol/L 08/09/20 05:20 BUN 16 mg/dL (9-20) 08/09/20 05:20 Creatinine 0.9 mg/dL (0.8-1.3) 08/09/20 05:20 Estimated GFR > 60 ml/min 08/09/20 05:20 BUN/Creatinine Ratio 18 % 08/09/20 05:20 Glucose 121 mg/dL (75-100) H 08/09/20 05:20 Lactic Acid 1.10 mmol/L (0.7-2.0) 08/08/20 04:02 Calcium 9.2 mg/dL (8.4-10.2) 08/09/20 05:20 Total Bilirubin 0.60 mg/dL (0.1-1.2) 08/08/20 04:02 AST 18 units/L (5-40) 08/08/20 04:02 ALT 15 units/L (7-56) 08/08/20 04:02 Alkaline Phosphatase 61 units/L (35-129) 08/08/20 04:02 Total Protein 6.5 g/dL (6.3-8.2) 08/08/20 04:02 Albumin 4.0 g/dL (3.9-5) 08/08/20 04:02 Albumin/Globulin Ratio 1.6 % 08/08/20 04:02 Coronavirus (PCR) Negative (Negative) 08/08/20 09:40 Titus/IV: Voiding Method Urinal IV Catheter Type [Left Forearm INT / Saline Lock ] Active Medications - Current Medications Current Medications: Generic Name Dose Route Start Last Admin Trade Name Freq PRN Reason Stop Dose Admin Albuterol/Ipratropium 1 ampul 08/08/20 08:00 08/09/20 07:59 Ipratropium/Albuterol Sulfate 3 Ml Ampul.Neb IH 1 ampul Q6HRT LANDY Administration Ceftriaxone Sodium 1 gm in 50 mls @ 100 mls/hr 08/08/20 06:00 08/09/20 05:22 Rocephin/Ns 1 Gm/50 Ml IV 100 mls/hr Q24H LANDY Administration Protocol Azithromycin 500 mg in 250 mls @ 250 mls/hr 08/09/20 06:00 08/09/20 05:22 Zithromax/Ns IV 250 mls/hr Q24H LANDY Administration Methylprednisolone Sodium Succinate 40 mg 08/08/20 14:00 08/09/20 05:22 Methylprednisolone Sod Succinate 40 Mg/1 Ml Inj IV 40 mg Q8HR LANDY Administration
[2020-08-09] MEDS ORDERED: [UNRECOGNIZED DRUG - OTHER] PO SCH (10:00)
[2020-08-09] MEDS ORDERED: HYDROCODONE PO SCH (10:00)
[2020-08-09] MEDS ORDERED: CHLORPHENIRAMINE PO SCH (10:00)
[2020-08-09] MEDS ORDERED: NON-FORMULARY EACH (Rosuvastatin (Nf) 20 MG) PO SCH (10:00)
[2020-08-09] MEDS ORDERED: ESOMEPRAZOLE MAGNESIUM PO SCH (10:00)
[2020-08-09] MEDS: MONTELUKAST 10 MG TAB PO SCH (10:05)
[2020-08-09] MEDS: SPIRONOLACTONE 25 MG TAB PO SCH (10:11)
[2020-08-09] MEDS: LOSARTAN 50 MG TAB PO SCH (10:11)
[2020-08-09] MEDS: DOXAZOSIN 4 MG TAB PO SCH (10:11)
[2020-08-09] MEDS: PANTOPRAZOLE 40 MG TAB PO SCH (11:20)
[2020-08-09] MEDS: BENZONATATE 100 MG CAP PO SCH ×2 (13:43→21:37)
[2020-08-09] MEDS: COLCHICINE 0.6 MG TAB PO SCH (17:36)
[2020-08-09] MEDS: FLUTICASONE PROPIONATE NASAL SPRAY 16 GM NS SCH ×2 (17:39→21:38)
[2020-08-09] MEDS ORDERED: ENOXAPARIN 40 MG/0.4 ML INJ SUB-Q SCH (22:00)
[2020-08-09] MEDS ORDERED: LORazepam 1 MG TAB PO SCH (22:00)
[2020-08-10] MEDS: methylPREDNISolone Sod Succinate 40 MG/1 ML INJ IV SCH (05:28)
[2020-08-10] MEDS: AZITHROMYCIN/NS 500 MG/250 ML 500 MG/250 ML BAG IV SCH (05:28)
[2020-08-10] MEDS: BENZONATATE 100 MG CAP PO SCH (05:28)
[2020-08-10] MEDS: cefTRIAXone/NS 1 GM/50 ML 1 GM/50 ML BAG IV SCH (05:28)
[2020-08-10] MEDS ORDERED: ALBUTEROL 2.5 MG/3 ML NEBU IH PRN (06:09)
[2020-08-10] MEDS: IPRATROPIUM/ALBUTEROL SULFATE 3 ML AMPUL.NEB IH SCH ×3 (06:20→13:50)
[2020-08-10 07:45] LABS: BUN/Creatinine Ratio 22; Blood Urea Nitrogen 20 mg/dL (9-20); Calcium 8.6 mg/dL (8.4-10.2); Hemolysis Index 0
[2020-08-10 07:52] LABS: Hematocrit 39.2 % (35.5-45.6); Hemoglobin 12.9 gm/dl (11.8-15.2); Mean Corpuscular HGB Conc 33 % (32-34); Mean Corpuscular Volume 85 fl (84-94); Platelet Count 242 K/mm3 (140-440); Red Cell Distribution Width 15.5 % (13.2-15.2)
--- NOTE | 2020-08-10 11:20 | Discharge Summary ---
Providers - Providers Date of Admission: 08/08/20 04:59 Date of discharge: 08/10/20 Attending physician: QI JOY 08/09/20 08:45 Physical Therapy Evaluation and Treat [CONS] Routine Comment: Reason For Exam: COPD exacerbation Primary care physician: CONSIGNEE Hospitalization Condition: Good Hospital course: 75-year-old male presented with acute hypoxic respiratory failure secondary to COPD exacerbation. Patient thought to have underlying bronchitis. Patient was treated with BiPAP DuoNeb Solu-Medrol. Given Rocephin and azithromycin empirically. Will discharge home with azithromycin p.o. for acute bronchitis. Patient will resume home O2 he was on 2 L at home as well as nebulizer treatments which he already has at home. Patient feels better satting 96% without oxygen at this time. Disposition: - TO HOME OR SELFCARE - Discharge Diagnoses (1) Acute hypoxemic respiratory failure Status: Acute (2) COPD exacerbation Status: Acute Comment: Very well controlled. We'll discharge her with a steroid taper. By mouth antibiotics Levaquin. (3) SOB (shortness of breath) Status: Acute (4) DVT prophylaxis Status: Acute (5) Gastroesophageal reflux disease Status: Acute Qualifiers: Esophagitis presence: without esophagitis Qualified Code(s): K21.9 - Gastro-esophageal reflux disease without esophagitis Comment: Continue PPI at home. (6) Suspected COVID-19 virus infection Status: Acute Comment: Already had Covid over 3 weeks ago. Negative on this admission. Core Measure Documentation - Palliative Care Palliative Care/ Comfort Measures: Not Applicable - Core Measures Any of the following diagnoses?: none Exam - Constitutional Vitals: Temp Pulse Resp BP Pulse Ox 98.1 F 118 H 20 109/53 98 08/10/20 04:43 08/10/20 08:05 08/10/20 08:05 08/10/20 04:43 08/10/20 08:05 General appearance: Present: no acute distress, well-nourished - EENT Eyes: Present: PERRL ENT: hearing intact, clear oral mucosa - Neck Neck: Present: supple, normal ROM - Respiratory Respiratory effort: normal Respiratory: bilateral: CTA, negative: wheezing (Mild wheezing) - Cardiovascular Heart Sounds: Present: S1 & S2. Absent: rub, click - Extremities Extremities: pulses symmetrical, No edema Peripheral Pulses: within normal limits - Abdominal General gastrointestinal: Present: soft, non-tender, non-distended, normal bowel sounds Male genitourinary: Present: normal - Integumentary Integumentary: Present: clear, warm, dry - Musculoskeletal Musculoskeletal: gait normal, strength equal bilaterally - Psychiatric Psychiatric: appropriate mood/affect, intact judgment & insight - Neurologic Neurologic: CNII-XII intact, moves all extremities Plan Activity: no restrictions Weight Bearing Status: Full Weight Bearing Diet: low salt, low carbohydrate Prescriptions: predniSONE [Deltasone] 5 mg PO DAILY #20 Prednisone [predniSONE 10 mg (6-Day Pack, 21 Tabs)] 10 mg PO .TAPER #1 tab.ds.pk ALBUTEROL NEB's [Proventil 0.083% NEBS] 2.5 mg IH Q4HRT PRN #7 nebu PRN Reason: Shortness Of Breath Benzonatate [Tessalon Perles] 200 mg PO Q8HR #14 capsule Azithromycin [Zithromax TAB] 500 mg PO QDAY #7 tablet
[2020-08-10 11:49] LABS: Total Cells Counted 100
[2020-08-10 11:51] LABS: Schistocytes Few
[2020-08-10 11:52] LABS: Giant Platelets Few
[2020-08-10 11:53] LABS: Platelet Estimate Consistent w Auto
[2020-08-10] MEDS: FLUTICASONE PROPIONATE NASAL SPRAY 16 GM NS SCH (12:04)
[2020-08-10] MEDS: LOSARTAN 50 MG TAB PO SCH (12:05)
[2020-08-10] MEDS: COLCHICINE 0.6 MG TAB PO SCH (12:05)
[2020-08-10] MEDS: MONTELUKAST 10 MG TAB PO SCH (12:08)
[2020-08-10] MEDS: SPIRONOLACTONE 25 MG TAB PO SCH (12:08)
[2020-08-10] MEDS: PANTOPRAZOLE 40 MG TAB PO SCH (12:08)
[2020-08-10] MEDS: DOXAZOSIN 4 MG TAB PO SCH (12:10)
[2020-08-10 13:45] VITALS: BP 132/75
[2020-08-11] MEDS ORDERED: AZITHROMYCIN 250 MG TAB PO SCH (10:00)
== END 2020-08-10 14:45 | disposition home or self-care (01) ==
LOC: ED 03:42 → 4A 04:59
PROVIDERS: ADMIT Hospitalist; ATTEND Internal Medicine
DX: J96.01 Acute respiratory failure with hypoxia (principal); Z20.828 Contact with and (suspected) exposure to other viral communicable diseases; J44.1 Chronic obstructive pulmonary disease with (acute) exacerbation; I10 Essential (primary) hypertension; K21.9 Gastro-esophageal reflux disease without esophagitis; M19.90 Unspecified osteoarthritis, unspecified site; Z87.891 Personal history of nicotine dependence; Z23 Encounter for immunization
CPT/HCPCS: 36415; 71045; 80048; 80053; 82140; 82962; 85025; 87641; 90732; 94640; 94760; 96365; 96366; 96367; 96368; 96372; 96375; 96376; 97161; 99291; A9270; G0009; G0378; J0456; J0692; J0696; J1650; J2920; J2930; J3475; U0003; 85007; 90471; 94644